=== PATIENT | female | born 1940 | race Caucasian/White ===

== ENCOUNTER 2020-03-06 09:30 | Outpatient (CLI) | payer MEDICARE, BC, SELFPAY ==
--- NOTE | ~2020-03-06 | US_ITS ---
EXAMINATION: US venous doppler [facility] DATE: 03/06/2020 10:11 INDICATION: Lower limb edema. TECHNIQUE: Grayscale ultrasound images without and with compression and Doppler ultrasound images of the bilateral lower extremity veins were obtained. COMPARISON: None. FINDINGS: The visualized portions of right common femoral vein, profunda (deep) femoral vein, femoral vein, pop liteal vein, peroneal veins, posterior tibial veins, and greater saphenous vein outflow are patent. The visualized portions of left common femoral vein, profunda femoral vein, femoral vein, popliteal v ein, peroneal veins, posterior tibial veins, and greater saphenous vein outflow are patent. IMPRESSION: 1. No deep venous thrombosis. Reviewed, dictated and finalized at location A.
[2020-03-06 09:52] LABS: Basophils Absolute Auto 0.05 K/mm3 (0.00-0.10); Basophils Percent Auto 0.9 % (0.0-1.0); Eosinophils Absolute Auto 0.11 K/mm3 (0.02-0.50); Eosinophils Percent Auto 2.1 % (1.0-6.0); Hematocrit 41.8 % (35.0-42.0); Immature Granulocyte Absolute 0.02 K/mm3 (0.00-0.00); Immature Granulocyte Percent A 0.4 % (0.0-0.0); Lymphocytes Absolute Auto 1.23 K/mm3 (1.10-4.50); Lymphocytes Percent Auto 23.3 % (18.0-42.0); Mean Corpuscular HGB Conc 33.5 g/dL (32.0-36.0); Mean Corpuscular Hemoglobin 31.7 pg (27.0-31.0); Mean Corpuscular Volume 94.8 fL (78.0-102.0); Mean Platelet Volume 9.9 fl (9.2-11.8); Monocytes Absolute Auto 0.47 K/mm3 (0.10-0.90); Monocytes Percent Auto 8.9 % (2.0-11.0); Neutrophils Absolute Auto 3.4 K/mm3 (1.7-7.2); Neutrophils Percent Auto 64.4 % (50.0-70.0); Platelet Count Result 179 K/mm3 (150-420); Red Blood Count 4.41 M/mm3 (4.20-5.40); Red Cell Distribution Width 12.3 % (11.6-14.4); White Blood Count 5.3 K/mm3 (4.8-10.8)
[2020-03-06 09:57] LABS: Add Urine Microscopic? YES; Appearance Urine Clear (Clear); Bilirubin Urine Negative (Negative); Blood Urine Negative (Negative); Color Urine Yellow (Yellow); Glucose Urine UA Negative (Negative); Ketones Urine Negative (Negative); Leukocyte Esterase Ur Trace (Negative); Nitrate Urine Negative (Negative); Protein Urine Negative (Negative); Specific Grav Ur >= 1.030 (1.010-1.020); pH Urine 5.5 (5.0-8.0)
[2020-03-06 10:07] LABS: RBC Urine 0-2 /hpf (0-2)
[2020-03-06 10:08] LABS: Bacteria Urine 1+ /hpf; Squamous Epithelial Cell Urine Moderate /hpf (Few)
[2020-03-06 10:14] LABS: BNP 68.3 pg/mL (0-100)
[2020-03-06 10:48] LABS: Alanine Aminotransferase 19 U/L (14-59); Albumin Level 3.5 g/dL (3.4-5.0); Alkaline Phosphatase 69 U/L (46-116); Anion Gap 12.3 mmol/L (7-16); Aspartate Amino Transferase 18 U/L (15-37); Bilirubin,Total 0.5 mg/dL (0.00-1.00); Blood Urea Nitrogen 15 mg/dL (7-18); Carbon Dioxide 29 mmol/L (21-32); Chloride 107 mmol/L (98-108); Estimated Glomerular Filt Rate 48; Glucose 100 mg/dL (70-99); Osmolality Calculated 298 mOsm/kg (285-295); Potassium 4.3 mmol/L (3.5-5.1); Sodium 144 mmol/L (136-145); Thyroid Stimulating Hormone 3.19 uIU/mL (0.36-3.74); Total Protein 6.6 g/dL (6.4-8.2)
== END 2020-03-06 09:31 | disposition home or self-care (01) ==
LOC: CHSLAB 09:37
PROVIDERS: PCP Internal Medicine; Visit Provider Internal Medicine
DX: R60.9 Edema, unspecified (principal); I10 Essential (primary) hypertension; I50.9 Heart failure, unspecified
CPT/HCPCS: 36415; 80053; 81001; 83880; 84443; 85025; 93970

== ENCOUNTER 2020-03-28 09:59 | Outpatient (CLI) | payer MEDICARE, BC, SELFPAY ==
--- NOTE | ~2020-03-28 | MM_ITS ---
EXAMINATION: MM screening kimi BI w juju HISTORY: Screening mammogram TECHNIQUE: Craniocaudal and mediolateral oblique 3-D tomosynthesis images were obtained and synthetic 2-D images were generated. CAD analysis was submitted and interpreted. COMPARISON: No prior mammogram is available for comparison at this institution. BREAST PARENCHYMAL COMPOSITION: The breasts are heterogeneously dense, which may obscure small masses . FINDINGS: Occasional benign calcifications. There is no evidence of suspicious mass, calcification, or architectural distortion to suggest malignancy in either breast. There has been no suspicious int erval change. IMPRESSION: 1. No mammographic evidence of malignancy. 2. Recommend routine screening mammography in one year. BI-RADS Category 2: Benign finding(s). Reviewed, dictated and finalized at location A.
== END 2020-03-28 10:00 | disposition home or self-care (01) ==
PROVIDERS: PCP Internal Medicine; Visit Provider Internal Medicine
DX: Z12.31 Encounter for screening mammogram for malignant neoplasm of breast (principal)
CPT/HCPCS: 77063; 77067

== ENCOUNTER 2020-12-15 08:06 | Emergency (ER) | payer MEDICARE, BC, SELFPAY ==
[2020-12-15 08:15] VITALS: BP 154/76; PULSE 70; RESP 18; TEMP 36.7; O2SAT 95
--- NOTE | 2020-12-15 08:44 | ED.SKABFB ---
HPI - Skin/Abscess/Foreign Bdy General Chief complaint: Skin/Abscess/Foreign Body Stated complaint: back pain Time Seen by Provider: 12/15/20 08:25 Source: patient Mode of arrival: ambulatory Limitations: no limitations History of Present Illness HPI narrative: Patient comes in with back pain at the level of about T5. There is an accompanying rash with this that appears to be shingles. The rash radiates in a dermatomal fashion around the right side of her back and onto her chest. Some of these lesions appear to be vesicles The patient states this is the worst pain she has had in her life. she states that the rash and the pain has been developing over the last few days. Nothing has decreased this pain at home. She has used nonsteroidal anti-inflammatory drugs and Tylenol without much improvement. She states she has never gotten a shingles vaccine. complaint: rash Location: chest and back (about level of T5 in dermatomal fashion) Severity: severe Quality: burning Pain Consistency: constant Relieving factors: none Exacerbating factors: none Related Data Home Medications Medication Instructions Recorded Confirmed atorvastatin 10 mg PO DAILY 12/15/20 12/15/20 omeprazole 40 mg PO DAILY 12/15/20 12/15/20 spironolactone 25 mg PO DAILY 12/15/20 12/15/20 Allergies Allergy/AdvReac Type Severity Reaction Status Date / Time No Known Allergies Allergy Verified 12/15/20 09:04 Review of Systems Constitutional: Constitutional: Reports no additional constitutional complaints Eyes: Eyes: Reports no additional eye complaints ENT: Reports system reviewed and no additional complaints, except as documented Cardiovascular: Cardiovascular: Reports no additional cardiovascular complaints Respiratory: Respiratory: Reports no additional respiratory complaints Gastrointestinal: Gastrointestinal: Reports no additional gastrointestinal complaints Genitourinary: Genitourinary: Reports no additional female genitourinary complaints Musculoskeletal: Musculoskeletal: Reports no additional musculoskeletal complaints Integumentary/Breasts: Skin/Breast: Reports system reviewed and no additional complaints, except as docu Neurologic: Reports system reviewed and no additional complaints, except as documented Psychiatric: Psychiatric: Reports no additional psychiatric complaints Endocrine: Endocrine: Reports no additional endocrine complaints Hematologic/Lymphatic: Hematologic/Lymphatic: Reports no additional hematologic/lymphatic complaints Allergic/Immunologic: Allergic/Immunologic: Reports no additional allergic/immunologic complaints PMFSH Past Medical History Medical History Breast cancer GERD (gastroesophageal reflux disease) Hyperlipidemia Surgical History Surgical History H/O lumpectomy History of hysterectomy Family History Family History Mother Cerebrovascular accident Father CAD (coronary artery disease) Myocardial infarct Social History Social History (Updated 12/16/20 @ 00:57 by Andrade Vazquez MD) Smoking status: Former smoker Tobacco type: cigarettes Alcohol intake: current Alcohol use details: rare very minimal use Substance use: never Occupation/Education: retired Sexual Orientation (if Verbalized by the Patient): Straight or Heterosexual Exam Const: General: no acute distress Orientation/consciousness: patient oriented x3 HENMT: Head: normal to inspection Ears: external ears normal and TM's normal bilaterally General nose exam: Normal external nose present Mouth: Yes Normal oral and palatal mucosa present Throat: posterior oropharynx normal Eyes: Conjunctivae: conjunctivae normal Neck: Neck: normal visual inspection Chest: Other: herpes zoster in dermatoma distribution about level of T5 on the right side of the chest.
[2020-12-15 08:56] VITALS: RESP 19
== END 2020-12-15 08:57 | disposition home or self-care (01) ==
PROVIDERS: Emergency Provider Emergency Medicine; PCP Internal Medicine
DX: B02.9 Zoster without complications (principal)
CPT/HCPCS: 99283

== ENCOUNTER 2021-03-21 13:54 | Emergency (ER) | payer MEDICARE, BC, SELFPAY ==
--- NOTE | ~2021-03-21 | CT_ITS ---
EXAMINATION: CT brain wo con EXAM DATE: 03/21/2021 17:03 INDICATION: Dizziness and weakness since this morning. TECHNIQUE: Spiral CT of the head was performed without contrast. Axial, coronal and sagittal images were reviewed. The dose-length product (DLP) for this examination was 605.33 mGy-cm. The exposure w as tailored according to patient size, and iterative reconstruction (ASIR) was used as additional dos e reduction technique. Comparison is made to prior examination from 01/09/2019. FINDINGS: There is no acute intraparenchymal hemorrhage. No evidence of intraparenchymal brain mass lesion. No evidence of acute infarction. Please note that initial head CT has limited sensitivity f or small or acute infarctions. There is mild periventricular and subcortical hypodensity, nonspecific but probably related to small vessel ischemic disease. There is moderate prominence of the sulci a nd ventricles related to cerebral atrophy. There is intracranial carotid arteriosclerosis. There a re no extra-axial collections. There is no mass effect or midline shift. The orbits are unremarkabl e. Soft tissue is unremarkable. The visualized sinuses and mastoid air cells are well aerated. IMPRESSION: 1. No acute intracranial findings. 2. Chronic age related findings. Reviewed, dictated and finalized at location A.
--- NOTE | ~2021-03-21 | XR_ITS ---
EXAMINATION: XR chest 1V portable EXAM DATE: 03/21/2021 17:04 INDICATION: Dizziness, shortness of breath today. TECHNIQUE: Portable AP frontal chest x-ray was obtained. Comparison is made to prior examination from 01/09/2019. FINDINGS: There is large gastroesophageal hiatal hernia. Heart size within normal limits accounting f or AP technique. No confluent consolidation, pneumothorax or pleural effusion suspected. Mild hyperi nflation. There are bony degenerative changes. IMPRESSION: Large gastroesophageal hiatal hernia. Reviewed, dictated and finalized at location A.
[2021-03-21 15:28] VITALS: BP 133/88; PULSE 54; RESP 20; TEMP 36.2; O2SAT 96
--- NOTE | 2021-03-21 15:53 | ECG_ITS ---
Measurements Intervals [place] Rate: 47 P: 31 [place]: 211 QRS: 34 QRSD: 99 T: 30 QT: 430 QTc: 383 Interpretive Statements SINUS BRADYCARDIA WITH FIRST DEGREE AV BLOCK INCOMPLETE RIGHT BUNDLE BRANCH BLOCK DELAYED PRECORDIAL R/S TRANSITION BASELINE ARTIFACT- II, AVL, AVF ABNORMAL ECG Electronically Signed On 03-21-2021 16:09:42 CDT by Jared Romero D.O.
[2021-03-21 16:00] VITALS: BP 130/74; BP 132/76; PULSE 51; PULSE 52; RESP 20; O2SAT 94; O2SAT 97
[2021-03-21 16:17] LABS: Basophils Absolute Auto 0.05 K/mm3 (0.00-0.10); Basophils Percent Auto 0.9 % (0.0-1.0); Eosinophils Absolute Auto 0.04 K/mm3 (0.02-0.50); Eosinophils Percent Auto 0.7 % (1.0-6.0); Hematocrit 41.8 % (35.0-42.0); Hemoglobin 13.8 g/dL (11.7-13.8); Immature Granulocyte Absolute 0.01 K/mm3 (0.00-0.00); Immature Granulocyte Percent A 0.2 % (0.0-0.0); Lymphocytes Percent Auto 27.1 % (18.0-42.0); Mean Platelet Volume 10.5 fl (9.2-11.8); Monocytes Absolute Auto 0.38 K/mm3 (0.10-0.90); Monocytes Percent Auto 6.9 % (2.0-11.0); Neutrophils Absolute Auto 3.6 K/mm3 (1.7-7.2); Neutrophils Percent Auto 64.2 % (50.0-70.0); Platelet Count Result 172 K/mm3 (150-420); Red Blood Count 4.31 M/mm3 (4.20-5.40); Red Cell Distribution Width 11.9 % (11.6-14.4); White Blood Count 5.5 K/mm3 (4.8-10.8)
[2021-03-21] MEDS: SODIUM CHLORIDE 0.9% IV 500 ML 999 ML IV CONT (16:20)
[2021-03-21 16:33] LABS: Alanine Aminotransferase 14 U/L (14-59); Albumin Level 3.6 g/dL (3.4-5.0); Alkaline Phosphatase 68 U/L (46-116); Anion Gap 12 mmol/L (8-16); Aspartate Amino Transferase 15 U/L (15-37); Bilirubin,Total 0.7 mg/dL (0.00-1.00); Blood Urea Nitrogen 14 mg/dL (7-18); Calcium 9.4 mg/dL (8.5-10.1); Carbon Dioxide 25 mmol/L (21-32); Chloride 106 mmol/L (98-108); Estimated CRCL calculation 38 ml/min; Estimated Glomerular Filt Rate 51; Glucose 110 mg/dL (70-99); Osmolality Calculated 297 mOsm/kg (285-295); Potassium 4.2 mmol/L (3.5-5.1); Sodium 143 mmol/L (136-145)
[2021-03-21 17:00] VITALS: BP 141/73; PULSE 49; RESP 20; O2SAT 94
[2021-03-21 18:00] VITALS: BP 132/66; PULSE 51; RESP 20; O2SAT 98
[2021-03-21 18:01] LABS: Add Urine Microscopic? NO; Appearance Urine Clear (Clear); Bilirubin Urine Negative (Negative); Blood Urine Negative (Negative); Color Urine Light Yellow (Yellow); Glucose Urine UA Negative (Negative); Ketones Urine Negative (Negative); Leukocyte Esterase Ur Negative (Negative); Nitrate Urine Negative (Negative); Protein Urine Negative (Negative); Urobilinogen Urine 0.2 mg/dL (0.2-1.0); pH Urine 7.5 (5.0-8.0)
--- NOTE | 2021-03-21 18:08 | ED.DIZZY ---
HPI - Dizziness General Chief Complaint: Dizziness Stated Complaint: feeling Dizzy/nausea Source: patient, family and RN notes reviewed Limitations: no limitations History of Present Illness MD elicited complaint: dizziness and lightheadedness Onset (ago): day(s) (1) Severity: mild Description: room spinning and lightheadedness History of similar symptoms: Yes Exacerbating factors: movement/ambulation Relieving factors: remaining still Associated symptoms: nausea Stroke scale total: 0 Related Data Home Medications Medication Instructions Recorded Confirmed atorvastatin 10 mg PO DAILY 12/15/20 03/21/21 omeprazole 40 mg PO DAILY 12/15/20 03/21/21 spironolactone 25 mg PO DAILY 12/15/20 03/21/21 Allergies Allergy/AdvReac Type Severity Reaction Status Date / Time No Known Allergies Allergy Verified 03/21/21 15:36 Review of Systems Review of Systems: All systems reviewed & are unremarkable except as noted in HPI and below Constitutional: Constitutional: Reports as per HPI and Reports no additional constitutional complaints Eyes: Eyes: Reports as per HPI and Reports no additional eye complaints ENT: Reports system reviewed and no additional complaints, except as documented and Reports as per HPI Cardiovascular: Cardiovascular: Reports as per HPI and Reports no additional cardiovascular complaints Respiratory: Respiratory: Reports as per HPI and Reports no additional respiratory complaints Gastrointestinal: Gastrointestinal: Reports as per HPI and Reports no additional gastrointestinal complaints Genitourinary: Genitourinary: Reports no additional female genitourinary complaints and Reports as per HPI Musculoskeletal: Musculoskeletal: Reports no additional musculoskeletal complaints and Reports as per HPI Integumentary/Breasts: Skin/Breast: Reports system reviewed and no additional complaints, except as docu and Reports as per HPI Neurologic: Reports system reviewed and no additional complaints, except as documented and Reports as per HPI Psychiatric: Psychiatric: Reports no additional psychiatric complaints and Reports as per HPI Endocrine: Endocrine: Reports no additional endocrine complaints and Reports as per HPI Hematologic/Lymphatic: Hematologic/Lymphatic: Reports no additional hematologic/lymphatic complaints and Reports as per HPI Allergic/Immunologic: Allergic/Immunologic: Reports no additional allergic/immunologic complaints and Reports as per HPI PMFSH Past Medical History Medical History Breast cancer GERD (gastroesophageal reflux disease) Hyperlipidemia Surgical History Surgical History H/O lumpectomy History of hysterectomy Family History Family History Mother Cerebrovascular accident Father CAD (coronary artery disease) Myocardial infarct Social History Social History Smoking status: Former smoker Tobacco type: cigarettes Alcohol intake: current Alcohol use details: rare very minimal use Substance use: never Gender identity (if verbalized by the patient): Female Exam Const: General: no acute distress and alert Nutritional Appearance: well nourished Orientation/consciousness: patient oriented x3 HENMT: Ears: TM's normal bilaterally and external ear abnormal General nose exam: Normal external nose present and Normal nares present Face and sinus: normal facial exam Mouth: Yes moist mucous membranes Throat: posterior oropharynx normal Eyes: Conjunctivae: conjunctivae normal Pupils: Equal, round and reactive pupils present EOM: EOMs intact bilaterally Neck: Neck: normal visual inspection and no lymphadenopathy Chest: Chest palpation & inspection: normal inspection of the chest Resp: Effort & Inspection: normal respiratory effort Aus
--- NOTE | 2021-03-21 18:13 | ECG_ITS ---
Measurements Intervals [place] Rate: 46 P: 45 [place]: 226 QRS: 40 QRSD: 101 T: 31 QT: 442 QTc: 390 Interpretive Statements SINUS BRADYCARDIA WITH FIRST DEGREE AV BLOCK INCOMPLETE RIGHT BUNDLE BRANCH BLOCK ABNORMAL ECG Electronically Signed On 03-21-2021 21:08:39 CDT by Jared Romero D.O.
[2021-03-21] MEDS: MECLIZINE HCL 25 MG TABLET PO (18:36)
[2021-03-21 18:45] VITALS: BP 131/67; PULSE 52; RESP 20; O2SAT 95
[2021-03-21 19:15] VITALS: BP 129/69; PULSE 60; RESP 20; O2SAT 96
== END 2021-03-21 19:18 | disposition home or self-care (01) ==
PROVIDERS: Emergency Provider Emergency Medicine; PCP Internal Medicine
DX: R42 Dizziness and giddiness (principal); K21.9 Gastro-esophageal reflux disease without esophagitis; E78.5 Hyperlipidemia, unspecified; Z85.3 Personal history of malignant neoplasm of breast; Z87.891 Personal history of nicotine dependence
CPT/HCPCS: 36415; 70450; 71045; 80053; 81003; 84484; 85025; 93005; 96360; 99283; 99284; A9270; J7040

== ENCOUNTER 2021-10-04 16:03 | Outpatient (CLI) | payer MEDICARE, BC, SELFPAY ==
--- NOTE | ~2021-10-04 | XR_ITS ---
XR chest 2V DATE: 10/04/2021 16:20 INDICATION: Cough, congestion, dyspnea for months TECHNIQUE: PA and lateral views COMPARISON: 03/21/2021 AP chest FINDINGS: Heart size appears normal. Is aortic arch calcification mild aortic unfolding. There is a l arge hiatal hernia. No hilar or mediastinal enlargement. No pulmonary infiltrate or consolidation, pleural effusion or pulmonary vascular congestion or pneumo thorax is detected. Line is prominent diffuse osteopenia. There is prominent thoracolumbar scoliosis, particularly severe at the lumbar spine. IMPRESSION: No active cardiac pulmonary disease Large hiatal hernia Aortic atherosclerosis Prominent thoracolumbar scoliosis Diffuse osteopenia Reviewed, dictated and finalized at location B. L BLOCKER
--- NOTE | ~2021-10-04 | CT_ITS ---
EXAMINATION: CTA chest PE protocol EXAM DATE: 10/04/2021 18:01 INDICATION: Elevated d dimer w/ congestion cough and SOB. TECHNIQUE: Spiral CTA of the chest (pulmonary arteries) was performed with 100 cc Omnipaque 350 intr avenous contrast injection. Images were acquired during the pulmonary arterial phase. Coronal maxi mum intensity projection 3D-reconstructions were created by the technologist on dedicated workstation . Axial, coronal and sagittal reformatted images were reviewed. The dose-length product (DLP) for t his examination was 488.93 mGy-cm. The exposure was tailored according to patient size (auto mA exp osure control), and iterative reconstruction (ASIR) was used as additional dose reduction technique. There is no prior study for comparison. FINDINGS: Pulmonary arteries are well opacified and without intraluminal filling defects. No thora cic aortic dissection. The lungs are clear. Mild emphysema. There are no pleural or pericardial effu sions. Tracheobronchial tree is patent. There is no mediastinal, hilar or axillary lymphadenopath y. There is no pneumothorax. Heart normal in size. There is mild coronary arterial calcificatio n, arterial sclerosis. Intrathoracic stomach, large hiatal hernia. 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 Moderate thoracolumbar scoliosis. IMPRESSION: 1. Intrathoracic stomach. 2. Mild emphysema. 3. No acute cardiopulmonary findings. Reviewed, dictated and finalized at location G. PRESSER
[2021-10-04 16:32] LABS: Basophils Absolute Auto 0.05 K/mm3 (0.00-0.10); Basophils Percent Auto 1.2 % (0.0-1.0); Eosinophils Absolute Auto 0.15 K/mm3 (0.02-0.50); Eosinophils Percent Auto 3.6 % (1.0-6.0); Hematocrit 42.8 % (35.0-42.0); Hemoglobin 14.1 g/dL (11.7-13.8); Immature Granulocyte Absolute 0.01 K/mm3 (0.00-0.00); Immature Granulocyte Percent A 0.2 % (0.0-0.0); Lymphocytes Absolute Auto 1.09 K/mm3 (1.10-4.50); Lymphocytes Percent Auto 25.8 % (18.0-42.0); Mean Corpuscular HGB Conc 32.9 g/dL (32.0-36.0); Mean Corpuscular Hemoglobin 31.6 pg (27.0-31.0); Mean Platelet Volume 10.4 fl (9.2-11.8); Monocytes Absolute Auto 0.47 K/mm3 (0.10-0.90); Monocytes Percent Auto 11.1 % (2.0-11.0); Neutrophils Absolute Auto 2.5 K/mm3 (1.7-7.2); Neutrophils Percent Auto 58.1 % (50.0-70.0); Platelet Count Result 181 K/mm3 (150-420); Red Blood Count 4.46 M/mm3 (4.20-5.40); Red Cell Distribution Width 12.6 % (11.6-14.4); White Blood Count 4.2 K/mm3 (4.8-10.8)
[2021-10-04 16:56] LABS: D Dimer 1.43 mg/L (0.19-0.50)
[2021-10-04 16:58] LABS: Alanine Aminotransferase 19 U/L (14-59); Albumin Level 3.6 g/dL (3.4-5.0); Alkaline Phosphatase 83 U/L (46-116); Anion Gap 10 mmol/L (8-16); Bilirubin,Total 0.5 mg/dL (0.00-1.00); Blood Urea Nitrogen 16 mg/dL (7-18); Calcium 8.9 mg/dL (8.5-10.1); Carbon Dioxide 28 mmol/L (21-32); Chloride 102 mmol/L (98-108); Estimated Glomerular Filt Rate 50; Glucose 95 mg/dL (70-99); NT Pro B Type Natriuretic Pept 126 pg/mL (0-450); Osmolality Calculated 291 mOsm/kg (285-295); Potassium 3.9 mmol/L (3.5-5.1); Sodium 140 mmol/L (136-145); Total Protein 7.5 g/dL (6.4-8.2)
[2021-10-04 17:10] LABS: SARS-CoV-2 RNA PCR Negative (Negative)
[2021-10-04 17:18] LABS: Aspartate Amino Transferase 19 U/L (15-37)
== END 2021-10-04 16:04 | disposition home or self-care (01) ==
PROVIDERS: PCP Internal Medicine; Visit Provider Internal Medicine
DX: R79.1 Abnormal coagulation profile (principal); R06.00 Dyspnea, unspecified; R05.9 Cough, unspecified; Z20.822 Contact with and (suspected) exposure to COVID-19
CPT/HCPCS: 36415; 71046; 71275; 80053; 83880; 85025; 85380; C9803; Q9967; U0003; U0005

== ENCOUNTER 2021-12-06 07:50 | Outpatient (CLI) | payer MEDICARE, BC, SELFPAY ==
--- NOTE | ~2021-12-06 | XR_ITS ---
EXAMINATION: XR UGIAC w barium swallow EXAM DATE: 12/06/2021 09:02 INDICATION: K44.9 - Diaphragmatic hernia without obstruction or gangrene. TECHNIQUE: Limited single and double contrast barium esophagram and upper GI examination was performe d by radiologist Deshawn Turk M.D. according to patient abilities. Pulsed dose reduction fluoroscopy w as used with fluoroscopic time of 0.3 minutes. The DAP for this procedure was 16 Gycm2. A total of 58 images obtained for the exam. Correlation is made to pulmonary CT 10/04/2021. FINDINGS: The pharynx is symmetric and without evidence of mass lesion or mucosal irregularity. Ther e is no esophageal stricture, diverticulum or mass identified. Stomach is intrathoracic in position, large gastroesophageal hiatal hernia. The stomach has a normal appearance without evidence of mass lesion, ulceration or filling defect. T here is normal rugal fold pattern. The duodenum and duodenal sweep are normal in appearance. IMPRESSION: Intrathoracic stomach. Reviewed, dictated and finalized at location A. IMPRESSION: Intrathoracic stomach.
== END 2021-12-06 07:51 | disposition home or self-care (01) ==
PROVIDERS: PCP Internal Medicine; Visit Provider Internal Medicine Gastroenterology
DX: K44.9 Diaphragmatic hernia without obstruction or gangrene (principal)
CPT/HCPCS: 74246

== ENCOUNTER 2022-03-15 09:07 | Outpatient (CLI) | payer MEDICARE, BC, SELFPAY ==
[2022-03-15 09:48] LABS: Hematocrit 41.2 % (37.0-47.0); Hemoglobin 13.5 g/dL (12.0-15.0)
[2022-03-15 10:00] LABS: Anion Gap 6 mmol/L (8-16); Blood Urea Nitrogen 14 mg/dL (7-17); Calcium 9.1 mg/dL (8.4-10.2); Carbon Dioxide 25 mmol/L (22-30); Chloride 107 mmol/L (98-107); Estimated Glomerular Filt Rate 53; Glucose 94 mg/dL (65-110); Potassium 4.6 mmol/L (3.4-5.0); Sodium 138 mmol/L (137-145)
== END 2022-03-15 09:08 | disposition home or self-care (01) ==
LOC: ANHLAB 09:09
PROVIDERS: PCP Internal Medicine; Referring Provider Anesthesiology; Visit Provider Surgery
DX: Z01.818 Encounter for other preprocedural examination (principal); I10 Essential (primary) hypertension; K44.9 Diaphragmatic hernia without obstruction or gangrene
CPT/HCPCS: 36415; 80048; 85014; 85018; 86850; 86900; 86901

== ENCOUNTER 2022-03-20 16:33 | Inpatient (IN) | payer MEDICARE, BC, SELFPAY ==
--- NOTE | 2022-03-14 08:38 | PC.NURSE ---
Report to the Outpatient Waiting Room, entrance under the green pavilion located off [facility], at time _0630 on date __03/19/22 . OR Time: . - You and your visitor will be asked a series of questions to screen for COVID 19 for your protection. - Only one visitor is allowed at this time. - The patient visitor is requested to leave or wait in car when not with patient. - A mask is required within the hospital. Patients may have clear liquids (water, carbonated beverages, clear teas, apple juice) until 3 hours prior to surgery with a maximum of 20 ounces. - No food from midnight until time of surgery - Infants may have breast milk until 4 hours before surgery, infant formula 6 hours prior to surgery. - Children will be allowed to drink immediately following surgery. If applicable, please bring a bottle or sippy cup to assist with drinking. Juice, water, soda, and popsicles are readily available. For infants on formula, please bring formula the day of surgery. Pacifiers are allowed. Take the following medications with a SIP of water the morning of surgery: __NONE Medications to discontinue per physician NONE Date to take last dose Please no make-up, nail puerto rican, hairspray, perfume, deodorant, or body powder the day of surgery. No jewelry (including any body piercings) or valuables the day of surgery, leave them at home. Please take a shower or bath the night before, or the morning of, surgery with an antibacterial soap. Wear comfortable, loose fitting clothing. Children are encouraged to wear pajamas. - Jewelry must be removed prior to entering the operating room. Rings and piercings that are not removed may be cut off. - The hospital will not accept responsibility for valuables. - Please leave all valuables, including medications, at home the day of surgery.HIBICLENS MORNING OF SURGERY If you are going home after surgery, a licensed driver wheelchair must drive you home. - NO public transportation without another adult. - We recommend that an adult stay with you for 24 hours following discharge. - We also recommend that you do not drive, make important decision, drink alcoholic beverages, or take any drugs that were not prescribed by your health care provider for at least 24 hours after your discharge time. For Pediatric surgeries, we recommend two adults accompany the child home (only one inside the building at this time). Follow any additional instructions given to you from your surgeon. If you or anyone in your household have experienced Covid symptoms in the past week, please notify your surgeon or the nurse liaison at the phone number below for possible testing. Telephone instructions given to __PATIENT and asked if any additional questions and then verbalized understanding. Patient advised to call surgeon office or pre surgery nurse liaison [phone] if any additional questions.
[2022-03-14 09:06] VITALS: BMI 27.8
--- NOTE | 2022-03-18 09:39 | PM.IMHP ---
H&P: HPI History of Present Illness Date/Time: 03/18/22 09:39 Chief Complaint: Epigastric pain, vomiting Narrative: the patient is an 81-year-old woman who has known she has had a hiatal hernia for at least 3 years. She has had problems with shortness of breath and last October went to the emergency room for evaluation of this. She has also had some syncopal episodes. CTA in the emergency room showed an intrathoracic stomach. Patient has had extensive cardiac workup as a cause of her shortness of breath and her syncope. She has had a recent normal stress test. She had outpatient Holter monitoring. She does take digoxin but has normal LV function and nearly no evidence of a cardiac source for her dyspnea or syncope. She initially was referred to Dr. Kwong for her intrathoracic stomach. He saw her in November. An upper GI was done which confirmed a large hiatal hernia with intrathoracic stomach. The patient has had dyspnea particularly on exertion. She used to walk about 4 miles a day but gets short of breath and cannot walk nearly this far in the last year. She also gets epigastric pain after eating. She asked to eat small amounts or she will vomit. Sometimes she gets dry heaves. Her recent cardiac evaluation was completed February 21, 2022. In that evaluation she had 30 day a remote telemetry monitoring, nuclear medicine cardiac stress testing, and echocardiography. No cardiac etiology could be found as a source of her complaints. I initially saw her in December. Although she does not have heartburn symptoms as she takes omeprazole, she does have shortness of breath and obstructive symptoms as mentioned above. We discussed laparoscopic repair of her large hiatal hernia with Halley fundoplication. She took a month to consider it. I saw her again on February 03 and she would like to proceed. She is taken to surgery now for laparoscopic repair of paraesophageal hiatal hernia with Halley fundoplication. Review of Systems Review of Systems: All systems reviewed & are unremarkable except as noted in HPI and below Constitutional: Constitutional: Denies anorexia, Denies chills, Denies fever(s) and Reports poor appetite Cardiovascular: Cardiovascular: Reports as per HPI, Denies chest pain, Denies diaphoresis, Reports dyspnea on exertion and Denies paroxysmal nocturnal dyspnea Respiratory: Respiratory: Denies chest congestion, Denies cough and Reports dyspnea on exertion Gastrointestinal: Gastrointestinal: Reports as per HPI, Reports abdominal pain ( Epigastric), Reports early satiety, Denies heartburn and Reports vomiting Integumentary/Breasts: Skin/Breast: Denies lesions and Denies rash Neurologic: Reports as per HPI, Reports dizziness and Reports syncope [facility] Past Medical History Medical History Breast cancer GERD (gastroesophageal reflux disease) Hyperlipidemia Surgical History Surgical History H/O lumpectomy History of hysterectomy Family History Family History Mother Cerebrovascular accident Father CAD (coronary artery disease) Myocardial infarct Social History Social History Smoking packs per day: 1 Smoking cigarettes per day: 20.0 Years smoked: 12 Smoking pack-years: 12.00 Smoking status: Former smoker Tobacco type: cigarettes Smoking end date: 08/31/59 Alcohol intake: current Alcohol use details: rare very minimal use Substance use: never Gender identity (if verbalized by the patient): Female Sexual Orientation (if Verbalized by the Patient): Straight or Heterosexual Spiritual care concerns: No Meds Home Medications and Allergies Home Medications Medication Instructions Recorded Confirmed Type atorvastatin 10 mg tablet 10 mg PO DAILY 12/15/20 03/14/22
--- NOTE | 2022-03-18 14:53 | WPDANESEPPF ---
Anes - Initial Pre Proc Eval Procedure: Operation Date: 03/19/22 08:30 Proposed Procedures p Laparoscopic Halley Fundoplication - Sherman Morrison MD Date/Time: 03/18/22 14:53 Surgeon: Sherman Morrison MD Pre Op Diagnosis: Hiatal Hernia, GERD Patient Data Age: 81 Gender: F Height: 1.65 m Weight: 75.75 kg Allergies Allergy/AdvReac Type Severity Reaction Status Date / Time No Known Allergies Allergy Verified 03/19/22 06:30 Home Medications Medication Instructions Recorded Confirmed Type atorvastatin 10 mg tablet 10 mg PO DAILY 12/15/20 03/19/22 History omeprazole 40 mg capsule,delayed 40 mg PO DAILY 12/15/20 03/19/22 History release spironolactone 25 mg tablet 25 mg PO DAILY 12/15/20 03/19/22 History acetaminophen 325 mg tablet 325 mg PO PRN PRN Pain 03/14/22 03/19/22 History (Tylenol) Patient hx anesthesia problems: none Family hx anesthesia problems: none Results Review: All pre-operative results and documents have been reviewed as part of the pre-operative evaluation. [facility] Past Medical History Medical History (Updated 03/18/22 @ 14:52 by Sagar Diaz MD) Atrial fibrillation Breast cancer Essential hypertension GERD (gastroesophageal reflux disease) Hyperlipidemia Surgical History Surgical History H/O lumpectomy History of hysterectomy Family History Family History Mother Cerebrovascular accident Father CAD (coronary artery disease) Myocardial infarct Social History Social History Smoking packs per day: 1 Smoking cigarettes per day: 20.0 Years smoked: 12 Smoking pack-years: 12.00 Smoking status: Former smoker Tobacco type: cigarettes Smoking end date: 08/31/59 Alcohol intake: current Alcohol use details: rare very minimal use Substance use: never Living arrangements: with family Gender identity (if verbalized by the patient): Female Sexual Orientation (if Verbalized by the Patient): Straight or Heterosexual Spiritual care concerns: No Anes - Eval Final PreProcedure Day of Procedure 03/18/22 14:53 Patient weight: normal Heart: regular rate and rhythm Lungs: clear to auscultation Airway: Mallampati scale class II Neurological: alert and oriented Last oral intake: >/= 8 hours ASA classification: III Emergent: no Anesthetic plan: proceed Anesthesia type and monitoring: general ETT and standard monitoring Results Review: All pre-operative results and documents have been reviewed as part of the pre-operative evaluation. Informed Consent: The patient's anesthetic plan and its attendant risks and benefits were discussed with the patient/family/POA. Questions were solicited and answers provided to the satisfaction of the patient/family/POA.
[2022-03-19] VITALS (23 sets, daily range): BP systolic 116–161; BP diastolic 62–85; PULSE 52–81; RESP 12–20; TEMP 36.1–36.6; O2SAT 96–100
--- NOTE | 2022-03-19 07:21 | WPDHPUPDATE1 ---
History and Physical Update Update Date/Time: 03/19/22 07:21 History and Physical has been reviewed, including an updated exam of the patient. There are NO changes in the patient's condition. Risks, benefits, and alternatives have been discussed and questions answered. Patient agrees to proceed with procedure.
[2022-03-19] MEDS: LACTATED RINGERS 1,000 ML 30 ML IV CONT ×3 (07:26→13:12)
[2022-03-19] MEDS: ceFAZolin 2 GM/D5W 50 ML 2 GM/50 ML BAG IVPB (08:31)
[2022-03-19] MEDS: BUPIVACAINE/EPINEPHRINE 0.25% 50 ML VIAL INFILTRATE (08:31)
--- NOTE | 2022-03-19 12:22 | W.PM.PROC2 ---
Procedure Note - Detailed Date of Procedure 03/19/22 Pre-op Diagnosis Paraesophageal hiatal hernia with intrathoracic stomach Post-op Diagnosis Same Procedure Performed Repair paraesophageal hiatal hernia with Halley fundoplication Surgeon Sherman Morrison MD Color Making Supervisor Demetra Degroot [facility] Anesthesia General and Local (0.25% Marcaine with epinephrine) Indications Patient is an 81-year-old woman who has a known large hiatal hernia for at least the last 3 years. She has had obstructive symptoms from the hiatal hernia with some vomiting and trouble eating. She has also had shortness of breath. Her reflux symptoms are actually controlled with omeprazole but the obstructive symptoms and dyspnea have been debilitating for her. She is taken to surgery now for repair of her paraesophageal hiatal hernia with fundoplication. Findings Large hiatal hernia with nearly the entire stomach in the chest and with evidence of paraesophageal hernia and volvulus. Numerous adhesions both to the greater curvature of the stomach as well as the esophagus necessitating extensive mediastinal dissection. The liver was difficult to retract as it was very floppy in the left lateral segment and somewhat enlarged causing it to drape over the upper aspect of the hiatus. There were numerous right-sided abdominal adhesions to the anterior abdominal wall that had to be taken down prior to starting the repair. This adhesiolysis required an extra 5 mm port be placed in the left lower quadrant. Blood loss was about 100 cc which is 3-4 times what it usually is for this surgery. Description of Procedure The patient was taken to surgery and induced into general anesthesia. Robert catheter was placed. The entire abdomen was prepped and draped. The initial trocar was placed in the midline above the umbilicus. Local anesthesia was infiltrated prior to placement of each of the trocars. For this trocar site, we initially used the varies needle and saline drop technique to ensure intra-abdominal placement. We then insufflated CO2 without difficulty. Once the abdomen was distended, a 10 11 applied Medical optical trocar was placed in the abdomen without difficulty. We placed the camera and immediately noticed extensive anterior abdominal wall adhesions on the right side of the abdomen. A 10 11 left subcostal lateral port was placed under direct visualization. We viewed the adhesions through this port as well. There was no good way to take them down without an additional port being placed on the left side of the abdomen. A 5 mm left lower quadrant port was placed under direct visualization. Through this port, these adhesions were taken down with sharp and blunt dissection. Some LigaSure dissection was used as well. We freed adhesions from the falciform ligament. Adhesions over the liver and caudal to the liver were also taken down until we had the normal area of trocar placement and dissection for the hiatal hernia repair. We continued with the 5 mm left lower quadrant trocar for insufflation. I then placed the incision for the Chung self-retaining liver retractor just to the right of the xiphoid process in the upper midline. The Chung was placed in the abdomen. As mentioned above, the lateral segment of the left lobe of the liver was larger than usual and very floppy. It was difficult to retract this anteriorly without the anterior edge of the lateral segment flopping down to obscure our view. Eventually I was able to retract this portion of the liver but some of the posterior portion was overlying the anterior aspect of the esophageal hiatus. We then placed the remaining 10 11 ports in their usual position just to the right and left of the midline in the upper abdomen. Now looking at the hiatal hernia, the distal stomach was more less overlying the right aicha and obscuring the gastrohepatic ligament. Some traction on the stomach was performed and eventually I was able to see some of
[2022-03-19] MEDS: PROPOFOL IV EMULSION 100 ML 21.18 MG IV CONT (12:32)
[2022-03-19] MEDS: fentaNYL CITRATE INJ (*CRX) 100 MCG/2 ML VIAL 25 MCG IV PUSH ×8 (13:04→14:54)
--- NOTE | 2022-03-19 13:05 | SUR.PHASEI ---
1250 - dr. ellsworth at bedside. extubated pt. pt arouses to verbal stimuli. resp easy and regular
[2022-03-19] MEDS: LACTATED RINGERS 1,000 ML 80 ML IV CONT (17:17)
[2022-03-19] MEDS: IBUPROFEN IV 800 MG/200 ML 800 MG/200 ML BAG 400 MG IVPB (17:17)
[2022-03-19] MEDS: ONDANSETRON INJ 4 MG/2 ML VIAL IV PUSH (17:18)
--- NOTE | 2022-03-19 18:39 | ADMGEN ---
This patient, Misti Garcia, was admitted to Medical Room 247-. Patient/family oriented to hospital policies and general routines including ID bracelet, bed and alarms, visiting hours, pain management, procedures, bathroom and other care routines, personal items, smoking policy, room service/diet, and visiting hours. Information on how to activate the Rapid Response Team has been discussed. Patient/Family are encouraged to report perceived risks to care and to ask questions if they do not understand what they are told or what they should do.
[2022-03-19] MEDS: HYDROcodone/acetaminophen (*CRX) 5-325 MG TABLET 1 TAB PO (20:21)
[2022-03-19] MEDS: HYDROcodone/acetaminophen (*CRX) 7.5-325 MG TABLET 1 TAB PO (22:26)
--- NOTE | ~2022-03-20 | XR_ITS ---
EXAMINATION: XR esophogram water soluble DATE: 03/23/2022 12:24 INDICATION: Dysphagia post hiatal hernia repair 4 days prior. TECHNIQUE: The patient drank water subtle contrast. Fluoroscopic spot radiographs of the hypopharynx and esophagus were obtained. Fluoroscopy exposure time was 0.4 minutes. COMPARISON: None. FINDINGS: On the first swallow contrast extending probably to the distal esophagus which measured approximately 3 cm in diameter. Lucent filling defects consistent with previously ingested material are seen in th e distal esophagus. Very small amount of the contrast passed into the stomach with a persistent sever e narrowing measuring approximately 3 cm in length at the gastroesophageal junction which could refle ct changes of prior Halley complication. Correlate with surgical history. The presence of previously ingested debris in the distal esophagus suggests an ongoing stricture as opposed to muscle spasm and no further contrast was administered. IMPRESSION: 1. Severe narrowing of the distal esophagus at the gastroesophageal junction with nearly indiscernibl e threadlike lumen at this location which may be due to a prior Halley fundoplication in the provided history of hiatal hernia repair. The presence of residual previously ingested debris within the dist al esophagus suggests represents an ongoing fixed obstruction. Correlate with details of the prior june rgery. Reviewed, dictated and finalized at location A. IMPRESSION: 1. Severe narrowing of the distal esophagus at the gastroesophageal junction wi th nearly indiscernible threadlike lumen at this location which may be due to a prior Halley fundoplication in the provided history of hiatal hernia repair. T he presence of residual previously ingested debris within the distal esophagus suggests represents an ongoing fixed obstruction. Correlate with details of the prior surgery.
--- NOTE | ~2022-03-20 | XR_ITS ---
EXAMINATION: XR chest 2V DATE: 03/27/2022 13:22 INDICATION: Shortness of breath TECHNIQUE: PA and lateral views of the chest are obtained. COMPARISON: 10/04/2021 FINDINGS: There are small pleural effusions. Minimal airspace opacities are present in the lung bases . The cardiomediastinal silhouette is normal. There is moderate thoracic spondylosis. No pneumothorax is identified. IMPRESSION: 1. Small pleural effusions with minimal bibasilar airspace opacities, atelectasis versus pneumonia. Reviewed, dictated and finalized at location B. IMPRESSION: 1. Small pleural effusions with minimal bibasilar airspace opacities, atelectas is versus pneumonia.
[2022-03-20 05:29] LABS: Hematocrit 35.2 % (37.0-47.0); Hemoglobin 11.2 g/dL (12.0-15.0); Mean Corpuscular HGB Conc 31.8 g/dl (32-36); Mean Corpuscular Hemoglobin 30.8 pg (26-34); Mean Corpuscular Volume 96.7 fl (80-100); Mean Platelet Volume 10.5 fl (7.4-10.4); Platelet Count Result 139 k/mm3 (150-375); Red Blood Count 3.64 M/mm3 (4.2-5.4); Red Cell Distribution Width 12.8 % (11.5-14.5); White Blood Count 7.7 K/mm3 (4.5-10.0)
[2022-03-20 05:40] LABS: Anion Gap 2 mmol/L (8-16); Blood Urea Nitrogen 20 mg/dL (7-17); Calcium 8.8 mg/dL (8.4-10.2); Carbon Dioxide 30 mmol/L (22-30); Chloride 104 mmol/L (98-107); Estimated CRCL calculation 37 ml/min; Estimated Glomerular Filt Rate 60; Glucose 113 mg/dL (65-110); Potassium 4.5 mmol/L (3.4-5.0); Sodium 136 mmol/L (137-145)
[2022-03-20] MEDS: LACTATED RINGERS 1,000 ML 80 ML IV CONT (06:06)
[2022-03-20 06:20] VITALS: BP 118/60; PULSE 52; RESP 16; TEMP 36.6; O2SAT 100
[2022-03-20] MEDS: HYDROcodone/acetaminophen (*CRX) 7.5-325 MG TABLET 1 TAB PO ×2 (08:01→14:33)
[2022-03-20] MEDS: SPIRONOLACTONE 25 MG TABLET PO (08:02)
[2022-03-20] MEDS: ATORVASTATIN 10 MG TABLET PO (08:02)
[2022-03-20] MEDS: PANTOPRAZOLE SODIUM IV 40 MG VIAL IV PUSH (08:02)
[2022-03-20] MEDS: ENOXAPARIN 40 MG/0.4 ML SYRINGE SUB-Q (08:02)
[2022-03-20 08:25] VITALS: O2SAT 99
[2022-03-20 10:06] VITALS: BP 115/57; PULSE 66; RESP 16; TEMP 36.6; O2SAT 94
[2022-03-20 14:00] VITALS: BP 112/56; PULSE 62; RESP 16; TEMP 36.6; O2SAT 94
--- NOTE | 2022-03-20 14:28 | PM.PNGS ---
Progress Note: A&P Assessment and Plan (1) Paraesophageal hiatal hernia: Code(s): K44.9 - Diaphragmatic hernia without obstruction or gangrene Status: Acute Assessment and Plan: POD#1 and doing well. Still a little drowsy but seems to be slowly improving. Tolerate clear liquids. Advance to full liquids and decrease IV fluids. Encouraged to get up in the chair this afternoon. Slowly increase activity as tolerated. Repeat labs tomorrow. (2) Essential hypertension: Code(s): I10 - Essential (primary) hypertension Status: Inactive Assessment and Plan: Spironolactone restarted. BP stable. Continue to monitor. (3) Arrhythmia: Code(s): I49.9 - Cardiac arrhythmia, unspecified Status: Acute Assessment and Plan: Regular rate and rhythm on exam. Plan I have discussed the patient's case and plan of care with Dr. Morrison. Subjective Subjective Date/Time Seen: 03/20/22 14:28 Post Op day: 1 (Laparoscopic Halley fundoplication) Patient reports: tolerating liquids well, voiding w/o difficulty, no flatus, no bowel movement and afebrile Interval history: Patient seen and examined. Reports feeling drowsy today and sleeping through the day, but she is able to stay awake for our entire conversation. She does not have any issues with falling asleep while speaking to her. She reports some pain with swallowing, but no other issues with the clear liquids. No nausea or reflux. Pain well controlled. Review of Systems Review of Systems: All systems reviewed & are unremarkable except as noted in HPI and below Constitutional: Constitutional: Reports no additional constitutional complaints, Denies chills, Denies fever(s) and Denies headache(s) Cardiovascular: Cardiovascular: Reports no additional cardiovascular complaints, Denies chest pain and Denies leg edema Respiratory: Respiratory: Reports no additional respiratory complaints, Denies cough and Denies dyspnea Gastrointestinal: Gastrointestinal: Reports as per HPI and Reports no additional gastrointestinal complaints Exam Const: General: comfortable, no acute distress, alert and awake Orientation/consciousness: patient oriented x3 Resp: Effort & Inspection: normal respiratory effort Auscultation: clear to auscultation bilaterally Cardio: Rate: regular rate Rhythm: regular rhythm GI: Inspection: non-distended and incision (incisions dry and intact, no erythema or drainage) GI Palp: Yes Soft to palpation, Yes Tenderness to palpation present (GI) (incisional), No Guarding due to palpation present (GI) and No Rebound tenderness present Auscultation: Hypoactive bowel sounds present Neuro: General: moves all extremities and no focal motor deficits Extrem: General: normal to inspection and edema Psych: Insight: Good insight present (Psych) Objective Data Vital Signs Vital Signs: Vital Signs - 24 hr 03/19/22 14:30 03/19/22 14:45 03/19/22 15:00 Temperature Pulse Rate 54 L 54 L 54 L Respiratory Rate 12 14 16 Blood Pressure 159/71 H 144/80 H 161/78 H Pulse Oximetry 98 99 100 Oxygen Delivery Nasal Cannula Nasal Cannula Nasal Cannula Oxygen Flow Rate 2 2 2 03/19/22 15:15 03/19/22 15:30 03/19/22 15:45 Temperature Pulse Rate 55 L 53 L 52 L Respiratory Rate 18 14 16 Blood Pressure 152/71 H 150/70 H 156/71 H Pulse Oximetry 100 100 100 Oxygen Delivery Nasal Cannula Nasal Cannula Nasal Cannula Oxygen Flow Rate 2 2 2 03/19/22 16:00 03/19/22 16:23 03/19/22 16:54 Temperature 97 F L 97.2 F L Pulse Rate 54 L 57 L 58 L Respiratory Rate 14 18 18 Blood Pressure 143/74 H 160/74 H 142/75 H Pulse Oximetry 100 99 100 Oxygen Delivery Nasal Cannula Oxygen Flow Rate 2 03/19/22 18:24 03/19/22 17:24 03/19/22 19:42 Temperature 96.9 F L 97 F L 97.6 F Pulse Rate 60 57 L 55 L Respiratory Rate 18 16 16 Blood Pressure 134/68 140/72 131/85 Pulse Oximetry 100 100 99 Oxygen Delivery Oxygen Flow Rate 03/19/22 20:00 0
[2022-03-20] MEDS: ONDANSETRON INJ 4 MG/2 ML VIAL IV PUSH (14:33)
[2022-03-20] MEDS: LACTATED RINGERS 1,000 ML 60 ML IV CONT (18:20)
[2022-03-20 19:38] VITALS: BP 105/55; PULSE 62; RESP 18; TEMP 36.6; O2SAT 96
[2022-03-20] MEDS: HYDROcodone/acetaminophen (*CRX) 5-325 MG TABLET 1 TAB PO (19:54)
[2022-03-20] MEDS: IBUPROFEN IV 800 MG/200 ML 800 MG/200 ML BAG 400 MG IVPB (22:28)
[2022-03-20 23:37] VITALS: BP 110/55; PULSE 80; RESP 17; TEMP 36.9; O2SAT 90
[2022-03-21 03:50] VITALS: BP 109/58; PULSE 56; RESP 17; TEMP 36.4; O2SAT 90
[2022-03-21 05:33] LABS: Hematocrit 33.5 % (37.0-47.0); Hemoglobin 10.8 g/dL (12.0-15.0); Immature Platelet Fraction Pct 5.1 % (0.9-11.2); Mean Corpuscular HGB Conc 32.2 g/dl (32-36); Mean Corpuscular Hemoglobin 31.1 pg (26-34); Mean Corpuscular Volume 96.5 fl (80-100); Platelet Count Result 131 k/mm3 (150-375); Red Blood Count 3.47 M/mm3 (4.2-5.4); Red Cell Distribution Width 13.2 % (11.5-14.5); White Blood Count 5.7 K/mm3 (4.5-10.0)
[2022-03-21 05:48] LABS: Anion Gap 3 mmol/L (8-16); Blood Urea Nitrogen 19 mg/dL (7-17); Calcium 8.3 mg/dL (8.4-10.2); Carbon Dioxide 29 mmol/L (22-30); Chloride 104 mmol/L (98-107); Estimated CRCL calculation 42 ml/min; Estimated Glomerular Filt Rate > 60; Glucose 104 mg/dL (65-110); Potassium 4.2 mmol/L (3.4-5.0); Sodium 136 mmol/L (137-145)
[2022-03-21] MEDS: ENOXAPARIN 40 MG/0.4 ML SYRINGE SUB-Q (09:22)
[2022-03-21] MEDS: SPIRONOLACTONE 25 MG TABLET PO (09:22)
[2022-03-21] MEDS: ATORVASTATIN 10 MG TABLET PO (09:22)
[2022-03-21] MEDS: PANTOPRAZOLE 40 MG TABLET PO (09:22)
[2022-03-21 09:35] VITALS: O2SAT 95
[2022-03-21 10:00] VITALS: O2SAT 92
[2022-03-21] MEDS: LACTATED RINGERS 1,000 ML 60 ML IV CONT (11:42)
[2022-03-21] MEDS: HYDROcodone/acetaminophen (*CRX) 5-325 MG TABLET 1 TAB PO ×2 (11:48→18:01)
[2022-03-21 15:00] VITALS: BP 139/65; PULSE 64; RESP 16; TEMP 36.9; O2SAT 95
--- NOTE | 2022-03-21 16:02 | PM.PNGS ---
Progress Note: A&P Assessment and Plan (1) Paraesophageal hiatal hernia: Code(s): K44.9 - Diaphragmatic hernia without obstruction or gangrene Status: Acute Assessment and Plan: Improving postop day 2. Still pretty unsteady on her feet but tolerating liquids. Will advance to soft diet. Continue ambulation. Possibly home in 1-2 days. Subjective Subjective Date/Time Seen: 03/21/22 16:02 Post Op day: 2 Patient reports: feels better (Not as sleepy today. Still very unsteady on her feet.), pain is less, flatus, no bowel movement and afebrile Interval history: Patient pretty awake this morning. She has been taking Mayetta for pain and taking some clear liquids but not a lot. She is requiring a lot of help to get out of bed and feels unsteady on her feet. No complaints of heartburn or nausea. Exam Const: General: comfortable, no acute distress, alert and awake Nutritional Appearance: average body habitus Orientation/consciousness: No confusion (Not confused but a little forgetful) GI: Inspection: incision (Dry and healing well) GI Palp: Yes Soft to palpation and Yes Tenderness to palpation present (GI) Neuro: General: no focal motor deficits and No confusion Extrem: General: no calf tenderness and no edema Objective Data Vital Signs Vital Signs: Vital Signs - 24 hr 03/20/22 19:38 03/20/22 20:00 03/20/22 23:37 Temperature 36.6 C 36.9 C Pulse Rate 62 80 Respiratory Rate 18 17 Blood Pressure 105/55 L 110/55 L Pulse Oximetry 96 90 Oxygen Delivery Room Air 03/21/22 03:50 03/21/22 09:35 03/21/22 10:00 Temperature 36.4 C L Pulse Rate 56 L Respiratory Rate 17 Blood Pressure 109/58 L Pulse Oximetry 90 95 92 Oxygen Delivery Room Air Room Air Intake/Output Intake/Output: Intake & Output 03/18/22 03/19/22 03/20/22 03/21/22 23:59 23:59 23:59 23:59 Intake Total 350 3910 1830 Output Total 1650 1300 Balance 350 2260 530 Meds/Results Medications: Active Medications Generic Name Dose Route Start Last Admin Trade Name Freq PRN Reason Stop Dose Admin Acetaminophen 500 mg 03/19/22 16:02 Acetaminophen 500 Mg Tablet PO Q6H PRN Mild Pain (1-3) or Fever Hydrocodone Bitart/Acetaminophen 1 tab 03/19/22 16:02 03/21/22 11:48 Hydrocodone/Acetaminophen (*Crx) 5-325 Mg Tablet PO 1 tab Q4H PRN Administration Pain Rated 4-6 Hydrocodone Bitart/Acetaminophen 1 tab 03/19/22 16:02 03/20/22 14:33 Hydrocodone/Acetaminophen (*Crx) 7.5-325 Mg Tablet PO 1 tab Q4H PRN Administration Pain Rated 7-10 Atorvastatin Calcium 10 mg 03/20/22 09:00 03/21/22 09:22 Atorvastatin 10 Mg Tablet PO 10 mg DAILY JAMESON Administration Enoxaparin Sodium 40 mg 03/20/22 09:00 03/21/22 09:22 Enoxaparin 40 Mg/0.4 Ml Syringe SUB-Q 40 mg DAILY JAMESON Administration Lactated Ringer's 1,000 mls @ 60 mls/hr 03/19/22 16:02 03/21/22 11:42 Lr - Lactated Ringers Iv IV CONT 60 mls/hr .[id number] JAMESON Administration Ibuprofen 800 mg in 200 mls @ 400 mls/hr 03/19/22 16:02 03/20/22 22:58 Caldolor 800 Mg/200 Ml IVPB Infused Q6H PRN Infusion Pain Rated 1-3 Morphine Sulfate 1 mg 03/19/22 16:02 Morphine Sulfate (*Crx) 2 Mg/Ml Inj IV PUSH Q2H PRN Pain Rated 4-6 Morphine Sulfate 2 mg 03/19/22 16:02 Morphine Sulfate (*Crx) 4 Mg/Ml Inj IV PUSH Q2H PRN Pain Rated 7-10 Naloxone HCl 0.1 mg 03/19/22 16:02 Naloxone Hcl 0.4 Mg/Ml Vial IV PUSH Q2M PRN Opiate Reversal Ondansetron HCl 4 mg 03/19/22 16:02 03/20/22 14:33 Ondansetron Inj 4 Mg/2 Ml Vial IV PUSH 4 mg Q4H PRN Administration Nausea And Vomiting Pantoprazole Sodium 40 mg 03/21/22 09:00 03/21/22 09:22 Pantoprazole 40 Mg Tablet PO 40 mg QAM JAMESON Administration Spironolactone 25 mg 03/20/22 09:00 03/21/22 09:22 Spironolactone 25 Mg Tablet PO 25 mg DAILY JAMESON Administration Labs Labs: Laboratory Resu
[2022-03-21 20:00] VITALS: O2SAT 95
[2022-03-21 23:00] VITALS: BP 129/66; PULSE 57; RESP 18; TEMP 36.8; O2SAT 96
[2022-03-22] MEDS: HYDROcodone/acetaminophen (*CRX) 5-325 MG TABLET 1 TAB PO ×3 (01:52→23:29)
[2022-03-22] MEDS: LACTATED RINGERS 1,000 ML 60 ML IV CONT ×2 (04:15→18:43)
[2022-03-22 05:30] LABS: Hematocrit 35.5 % (37.0-47.0); Hemoglobin 11.6 g/dL (12.0-15.0); Immature Platelet Fraction Pct 5.8 % (0.9-11.2); Mean Corpuscular HGB Conc 32.7 g/dl (32-36); Mean Corpuscular Hemoglobin 31.5 pg (26-34); Mean Corpuscular Volume 96.5 fl (80-100); Mean Platelet Volume 11.1 fl (7.4-10.4); Platelet Count Result 140 k/mm3 (150-375); Red Blood Count 3.68 M/mm3 (4.2-5.4); Red Cell Distribution Width 13.2 % (11.5-14.5)
[2022-03-22 05:58] VITALS: BP 130/61; PULSE 60; RESP 20; TEMP 36.9; O2SAT 97
[2022-03-22 06:06] LABS: Anion Gap 0 mmol/L (8-16); Blood Urea Nitrogen 12 mg/dL (7-17); Calcium 8.2 mg/dL (8.4-10.2); Carbon Dioxide 30 mmol/L (22-30); Chloride 106 mmol/L (98-107); Estimated CRCL calculation 47 ml/min; Estimated Glomerular Filt Rate > 60; Glucose 114 mg/dL (65-110); Sodium 136 mmol/L (137-145)
[2022-03-22] MEDS: ENOXAPARIN 40 MG/0.4 ML SYRINGE SUB-Q (08:59)
[2022-03-22] MEDS: SPIRONOLACTONE 25 MG TABLET PO (09:00)
[2022-03-22] MEDS: PANTOPRAZOLE 40 MG TABLET PO (09:00)
[2022-03-22] MEDS: ATORVASTATIN 10 MG TABLET PO (09:00)
[2022-03-22 09:04] VITALS: O2SAT 95
--- NOTE | 2022-03-22 11:23 | PM.PNGS ---
Progress Note: A&P Assessment and Plan (1) Paraesophageal hiatal hernia: Code(s): K44.9 - Diaphragmatic hernia without obstruction or gangrene Status: Acute Assessment and Plan: Significant dysphagia and regurgitation today, will back off to clear liquid diet Consider esophagram tomorrow if regurgitation persists Likely related to postoperative edema/inflammation Subjective Subjective Date/Time Seen: 03/22/22 11:23 Interval history: Patient not tolerating solid diet. Regurgitating everything she has tried to eat or drink today. Feels like food/liquid is getting stuck midway down the esophagus. Exam GI: Inspection: incision (Intact with glue) GI Palp: Yes Soft to palpation, No Tenderness to palpation present (GI) and No Guarding due to palpation present (GI) Objective Data Vital Signs Vital Signs: Vital Signs - 24 hr 03/21/22 15:00 03/21/22 20:00 03/21/22 23:00 Temperature 36.9 C 36.8 C Pulse Rate 64 57 L Respiratory Rate 16 18 Blood Pressure 139/65 129/66 Pulse Oximetry 95 95 96 Oxygen Delivery Room Air 03/22/22 05:58 03/22/22 09:04 Temperature 36.9 C Pulse Rate 60 Respiratory Rate 20 Blood Pressure 130/61 Pulse Oximetry 97 95 Oxygen Delivery Room Air Intake/Output Intake/Output: Intake & Output 03/19/22 03/20/22 03/21/22 03/22/22 23:59 23:59 23:59 23:59 Intake Total 350 3910 2961 789 Output Total 1650 1650 220 Balance 350 2260 1311 569 Meds/Results Medications: Active Medications Generic Name Dose Route Start Last Admin Trade Name Freq PRN Reason Stop Dose Admin Acetaminophen 500 mg 03/19/22 16:02 Acetaminophen 500 Mg Tablet PO Q6H PRN Mild Pain (1-3) or Fever Hydrocodone Bitart/Acetaminophen 1 tab 03/19/22 16:02 03/22/22 06:52 Hydrocodone/Acetaminophen (*Crx) 5-325 Mg Tablet PO 1 tab Q4H PRN Administration Pain Rated 4-6 Hydrocodone Bitart/Acetaminophen 1 tab 03/19/22 16:02 03/20/22 14:33 Hydrocodone/Acetaminophen (*Crx) 7.5-325 Mg Tablet PO 1 tab Q4H PRN Administration Pain Rated 7-10 Atorvastatin Calcium 10 mg 03/20/22 09:00 03/22/22 09:00 Atorvastatin 10 Mg Tablet PO 10 mg DAILY JAMESON Administration Enoxaparin Sodium 40 mg 03/20/22 09:00 03/22/22 08:59 Enoxaparin 40 Mg/0.4 Ml Syringe SUB-Q 40 mg DAILY JAMESON Administration Lactated Ringer's 1,000 mls @ 60 mls/hr 03/19/22 16:02 03/22/22 04:15 Lr - Lactated Ringers Iv IV CONT 60 mls/hr .[id number] JAMESON Administration Ibuprofen 800 mg in 200 mls @ 400 mls/hr 03/19/22 16:02 03/20/22 22:58 Caldolor 800 Mg/200 Ml IVPB Infused Q6H PRN Infusion Pain Rated 1-3 Morphine Sulfate 1 mg 03/19/22 16:02 Morphine Sulfate (*Crx) 2 Mg/Ml Inj IV PUSH Q2H PRN Pain Rated 4-6 Morphine Sulfate 2 mg 03/19/22 16:02 Morphine Sulfate (*Crx) 4 Mg/Ml Inj IV PUSH Q2H PRN Pain Rated 7-10 Naloxone HCl 0.1 mg 03/19/22 16:02 Naloxone Hcl 0.4 Mg/Ml Vial IV PUSH Q2M PRN Opiate Reversal Ondansetron HCl 4 mg 03/19/22 16:02 03/20/22 14:33 Ondansetron Inj 4 Mg/2 Ml Vial IV PUSH 4 mg Q4H PRN Administration Nausea And Vomiting Pantoprazole Sodium 40 mg 03/21/22 09:00 03/22/22 09:00 Pantoprazole 40 Mg Tablet PO 40 mg QAM JAMESON Administration Spironolactone 25 mg 03/20/22 09:00 03/22/22 09:00 Spironolactone 25 Mg Tablet PO 25 mg DAILY JAMESON Administration Labs Labs: Laboratory Results - last 24 hr 03/22/22 03/22/22 05:01 05:01 WBC 7.0 RBC 3.68 L Hgb 11.6 L Hct 35.5 L MCV 96.5 MCH 31.5 MCHC 32.7 RDW 13.2 Plt Count 140 L MPV 11.1 H % Immature Plt Fraction 5.8 Sodium 136 L Potassium 4.0 Chloride 106 Carbon Dioxide 30 Anion Gap 0 L BUN 12 D Creatinine 0.70 Estim Creat Clear Calc 47 Estimated GFR > 60 Glucose 114 H Calcium 8.2 L
[2022-03-22 15:00] VITALS: BP 108/59; PULSE 63; RESP 16; TEMP 36.6; O2SAT 94
[2022-03-22 20:13] VITALS: BP 151/67; PULSE 61; RESP 20; TEMP 36.1; O2SAT 96
[2022-03-22] MEDS: ONDANSETRON INJ 4 MG/2 ML VIAL IV PUSH (23:29)
[2022-03-23 03:44] VITALS: BP 124/84; PULSE 94; RESP 17; TEMP 36.1; O2SAT 95
[2022-03-23] MEDS: HYDROcodone/acetaminophen (*CRX) 5-325 MG TABLET 1 TAB PO (04:02)
[2022-03-23 05:13] LABS: Hematocrit 34.3 % (37.0-47.0); Hemoglobin 11.4 g/dL (12.0-15.0); Mean Corpuscular HGB Conc 33.2 g/dl (32-36); Mean Corpuscular Hemoglobin 31.1 pg (26-34); Mean Corpuscular Volume 93.7 fl (80-100); Mean Platelet Volume 11.1 fl (7.4-10.4); Platelet Count Result 163 k/mm3 (150-375); Red Blood Count 3.66 M/mm3 (4.2-5.4); Red Cell Distribution Width 13.1 % (11.5-14.5); White Blood Count 6.1 K/mm3 (4.5-10.0)
[2022-03-23 05:21] LABS: Anion Gap 6 mmol/L (8-16); Blood Urea Nitrogen 10 mg/dL (7-17); Calcium 8.3 mg/dL (8.4-10.2); Carbon Dioxide 27 mmol/L (22-30); Chloride 104 mmol/L (98-107); Estimated CRCL calculation 42 ml/min; Estimated Glomerular Filt Rate > 60; Glucose 112 mg/dL (65-110); Potassium 3.6 mmol/L (3.4-5.0); Sodium 137 mmol/L (137-145)
--- NOTE | 2022-03-23 10:02 | PM.PNGS ---
Progress Note: A&P Assessment and Plan (1) Paraesophageal hiatal hernia: Code(s): K44.9 - Diaphragmatic hernia without obstruction or gangrene Status: Acute Assessment and Plan: Patient is still experiencing dysphagia. Will get water-soluble esophagram today. Might need to start steroids to help with postoperative swelling Continue clear liquids until swallowing improves (2) Dysphagia: Code(s): R13.10 - Dysphagia, unspecified Status: Acute Subjective Subjective Date/Time Seen: 03/23/22 10:02 Interval history: Still experiencing dysphagia and regurgitation. Patient does not want to take her pills due to inability to swallow. Abdominal pain well controlled. Exam GI: Inspection: non-distended and incision (Intact with glue) GI Palp: Yes Soft to palpation, No Tenderness to palpation present (GI) and No Guarding due to palpation present (GI) Auscultation: normal bowel sounds Objective Data Vital Signs Vital Signs: Vital Signs - 24 hr 03/22/22 15:00 03/22/22 20:13 03/22/22 20:00 Temperature 36.6 C 36.1 C L Pulse Rate 63 61 61 Respiratory Rate 16 20 20 Blood Pressure 108/59 L 151/67 H Pulse Oximetry 94 96 96 Oxygen Delivery Room Air Fraction of Inspired Oxygen 35 03/23/22 03:44 Temperature 36.1 C L Pulse Rate 94 Respiratory Rate 17 Blood Pressure 124/84 Pulse Oximetry 95 Oxygen Delivery Fraction of Inspired Oxygen Intake/Output Intake/Output: Intake & Output 03/20/22 03/21/22 03/22/22 03/23/22 23:59 23:59 23:59 23:59 Intake Total 3910 2961 3379 Output Total 1650 1650 870 250 Balance 2260 1311 2509 -250 Meds/Results Medications: Active Medications Generic Name Dose Route Start Last Admin Trade Name Freq PRN Reason Stop Dose Admin Acetaminophen 500 mg 03/19/22 16:02 Acetaminophen 500 Mg Tablet PO Q6H PRN Mild Pain (1-3) or Fever Hydrocodone Bitart/Acetaminophen 1 tab 03/19/22 16:02 03/23/22 04:02 Hydrocodone/Acetaminophen (*Crx) 5-325 Mg Tablet PO 1 tab Q4H PRN Administration Pain Rated 4-6 Hydrocodone Bitart/Acetaminophen 1 tab 03/19/22 16:02 03/20/22 14:33 Hydrocodone/Acetaminophen (*Crx) 7.5-325 Mg Tablet PO 1 tab Q4H PRN Administration Pain Rated 7-10 Atorvastatin Calcium 10 mg 03/20/22 09:00 03/22/22 09:00 Atorvastatin 10 Mg Tablet PO 10 mg DAILY [facility] Administration Enoxaparin Sodium 40 mg 03/20/22 09:00 03/22/22 08:59 Enoxaparin 40 Mg/0.4 Ml Syringe SUB-Q 40 mg DAILY [facility] Administration Lactated Ringer's 1,000 mls @ 60 mls/hr 03/19/22 16:02 03/22/22 18:43 Lr - Lactated Ringers Iv IV CONT 60 mls/hr .[id number] [facility]ON Administration Ibuprofen 800 mg in 200 mls @ 400 mls/hr 03/19/22 16:02 03/20/22 22:58 Caldolor 800 Mg/200 Ml IVPB Infused Q6H PRN Infusion Pain Rated 1-3 Morphine Sulfate 1 mg 03/19/22 16:02 Morphine Sulfate (*Crx) 2 Mg/Ml Inj IV PUSH Q2H PRN Pain Rated 4-6 Morphine Sulfate 2 mg 03/19/22 16:02 Morphine Sulfate (*Crx) 4 Mg/Ml Inj IV PUSH Q2H PRN Pain Rated 7-10 Naloxone HCl 0.1 mg 03/19/22 16:02 Naloxone Hcl 0.4 Mg/Ml Vial IV PUSH Q2M PRN Opiate Reversal Ondansetron HCl 4 mg 03/19/22 16:02 03/22/22 23:29 Ondansetron Inj 4 Mg/2 Ml Vial IV PUSH 4 mg Q4H PRN Administration Nausea And Vomiting Pantoprazole Sodium 40 mg 03/21/22 09:00 03/22/22 09:00 Pantoprazole 40 Mg Tablet PO 40 mg QAM [facility] Administration Spironolactone 25 mg 03/20/22 09:00 03/22/22 09:00 Spironolactone 25 Mg Tablet PO 25 mg DAILY [facility] Administration Labs Labs: Laboratory Results - last 24 hr 03/23/22 03/23/22 04:26 04:26 WBC 6.1 RBC 3.66 L Hgb 11.4 L Hct 34.3 L MCV 93.7 MCH 31.1 MCHC 33.2 RDW 13.1 Plt Count 163 MPV 11.1 H Sodium 137 Potassium 3.6 Chloride 104 Carbon Dioxide 27 Anion Gap 6 L BUN 10 Creatinine 0.80 Estim Cr
[2022-03-23] MEDS: ENOXAPARIN 40 MG/0.4 ML SYRINGE SUB-Q (10:47)
[2022-03-23] MEDS: PANTOPRAZOLE SODIUM IV 40 MG VIAL IV PUSH (10:48)
[2022-03-23] MEDS: LACTATED RINGERS 1,000 ML 60 ML IV CONT (12:33)
[2022-03-23 13:25] VITALS: BP 124/70; PULSE 75; RESP 16; TEMP 36.3; O2SAT 95
[2022-03-23] MEDS: HYDROCORTISONE SODIUM SUCCINATE 100 MG/2 ML VIAL IV PUSH ×2 (14:14→21:03)
[2022-03-23 19:37] VITALS: BP 138/64; PULSE 58; RESP 18; TEMP 36.2; O2SAT 93
[2022-03-23 20:00] VITALS: O2SAT 93
[2022-03-23] MEDS: LACTATED RINGERS 1,000 ML 100 ML IV CONT (21:03)
[2022-03-24 03:31] VITALS: BP 136/62; PULSE 98; RESP 18; TEMP 36.2; O2SAT 93
[2022-03-24] MEDS: HYDROCORTISONE SODIUM SUCCINATE 100 MG/2 ML VIAL IV PUSH (06:18)
[2022-03-24] MEDS: ENOXAPARIN 40 MG/0.4 ML SYRINGE SUB-Q (08:06)
[2022-03-24] MEDS: PANTOPRAZOLE SODIUM IV 40 MG VIAL IV PUSH (08:06)
--- NOTE | 2022-03-24 08:09 | PM.PNGS ---
Progress Note: A&P Assessment and Plan (1) Dysphagia: Code(s): R13.10 - Dysphagia, unspecified Status: Acute Assessment and Plan: due to swelling at fundoplication site with extensive esophageal dissection during surgery. Agree with steroids. Will make patient NPO except for sips of water and ice chips. Explained the problem to the patient. Hopefully can resume liquids tomorrow or Thursday. (2) Paraesophageal hiatal hernia: Code(s): K44.9 - Diaphragmatic hernia without obstruction or gangrene Status: Acute Assessment and Plan: Repair intact per upper GI yesterday. (3) GERD (gastroesophageal reflux disease): Qualifiers: Esophagitis presence: without esophagitis Qualified Code(s): K21.9 - Gastro-esophageal reflux disease without esophagitis Code(s): K21.9 - Gastro-esophageal reflux disease without esophagitis Status: Acute Assessment and Plan: On IV Protonix. Will continue for about 30 days after surgery. Subjective Subjective Date/Time Seen: 03/24/22 08:09 Post Op day: 5 Patient reports: pain is less, afebrile and other (Still with problems of dysphagia and some regurgitation, mostly mucus.) Exam Const: General: comfortable, alert and awake GI: Inspection: non-distended and incision ( Incisions dry and healing well) GI Palp: Yes Soft to palpation and Yes Tenderness to palpation present (GI) ( minimal incisional tenderness) Objective Data Vital Signs Vital Signs: Vital Signs - 24 hr 03/23/22 13:25 03/23/22 19:37 03/23/22 20:00 Temperature 36.3 C L 36.2 C L Pulse Rate 75 58 L Respiratory Rate 16 18 Blood Pressure 124/70 138/64 Pulse Oximetry 95 93 93 Oxygen Delivery Room Air 03/24/22 03:31 Temperature 36.2 C L Pulse Rate 98 Respiratory Rate 18 Blood Pressure 136/62 Pulse Oximetry 93 Oxygen Delivery Intake/Output Intake/Output: Intake & Output 03/21/22 03/22/22 03/23/22 03/24/22 23:59 23:59 23:59 23:59 Intake Total 2961 3379 2000 200 Output Total 1650 870 350 100 Balance 1311 2509 1650 100 Meds/Results Medications: Active Medications Generic Name Dose Route Start Last Admin Trade Name Freq PRN Reason Stop Dose Admin Acetaminophen 500 mg 03/19/22 16:02 Acetaminophen 500 Mg Tablet PO Q6H PRN Mild Pain (1-3) or Fever Hydrocodone Bitart/Acetaminophen 1 tab 03/19/22 16:02 03/23/22 04:02 Hydrocodone/Acetaminophen (*Crx) 5-325 Mg Tablet PO 1 tab Q4H PRN Administration Pain Rated 4-6 Hydrocodone Bitart/Acetaminophen 1 tab 03/19/22 16:02 03/20/22 14:33 Hydrocodone/Acetaminophen (*Crx) 7.5-325 Mg Tablet PO 1 tab Q4H PRN Administration Pain Rated 7-10 Atorvastatin Calcium 10 mg 03/20/22 09:00 03/23/22 10:24 Atorvastatin 10 Mg Tablet PO Not Given DAILY [facility] Enoxaparin Sodium 40 mg 03/20/22 09:00 03/24/22 08:06 Enoxaparin 40 Mg/0.4 Ml Syringe SUB-Q 40 mg DAILY [facility] Administration Hydrocortisone Sodium Succinate 150 mg 03/24/22 14:00 Hydrocortisone Sodium Succinate 100 Mg/2 Ml Vial IV PUSH Q8HR J[facility]ON Lactated Ringer's 1,000 mls @ 70 mls/hr 03/19/22 16:02 03/23/22 21:03 Lr - Lactated Ringers Iv IV CONT 100 mls/hr .[id number] [facility]ON Administration Ibuprofen 800 mg in 200 mls @ 400 mls/hr 03/19/22 16:02 03/20/22 22:58 Caldolor 800 Mg/200 Ml IVPB Infused Q6H PRN Infusion Pain Rated 1-3 Morphine Sulfate 1 mg 03/19/22 16:02 Morphine Sulfate (*Crx) 2 Mg/Ml Inj IV PUSH Q2H PRN Pain Rated 4-6 Morphine Sulfate 2 mg 03/19/22 16:02 Morphine Sulfate (*Crx) 4 Mg/Ml Inj IV PUSH Q2H PRN Pain Rated 7-10 Naloxone HCl 0.1 mg 03/19/22 16:02 Naloxone Hcl 0.4 Mg/Ml Vial IV PUSH Q2M PRN Opiate Reversal Ondansetron HCl 4 mg 03/19/22 16:02 03/22/22 23:29 Ondansetron Inj 4 Mg/2 Ml Vial IV PUSH 4 mg Q4H PRN Administration Nausea And Vomiting Pantoprazole Sodium 40
[2022-03-24 08:15] VITALS: O2SAT 93
[2022-03-24] MEDS: LACTATED RINGERS 1,000 ML 100 ML IV CONT (08:17)
[2022-03-24 09:50] VITALS: O2SAT 96
[2022-03-24] MEDS: IBUPROFEN IV 800 MG/200 ML 800 MG/200 ML BAG 400 MG IVPB (12:17)
[2022-03-24] MEDS: HYDROCORTISONE SODIUM SUCCINATE 100 MG/2 ML VIAL 150 MG IV PUSH ×2 (13:34→20:37)
[2022-03-24 14:32] VITALS: BP 117/58; PULSE 62; RESP 14; TEMP 36.4; O2SAT 97
[2022-03-24 20:28] VITALS: BP 130/77; PULSE 83; RESP 20; TEMP 35.8; O2SAT 95
[2022-03-24] MEDS: LACTATED RINGERS 1,000 ML 70 ML IV CONT (20:36)
[2022-03-25 04:20] VITALS: BP 138/89; PULSE 88; RESP 18; TEMP 36.4; O2SAT 93
[2022-03-25 05:18] LABS: Hematocrit 36.2 % (37.0-47.0); Hemoglobin 12.4 g/dL (12.0-15.0); Mean Corpuscular HGB Conc 34.3 g/dl (32-36); Mean Corpuscular Hemoglobin 31.6 pg (26-34); Mean Corpuscular Volume 92.3 fl (80-100); Mean Platelet Volume 10.6 fl (7.4-10.4); Platelet Count Result 254 k/mm3 (150-375); Red Blood Count 3.92 M/mm3 (4.2-5.4); Red Cell Distribution Width 13.1 % (11.5-14.5); White Blood Count 6.3 K/mm3 (4.5-10.0)
[2022-03-25 05:33] LABS: Anion Gap 10 mmol/L (8-16); Blood Urea Nitrogen 22 mg/dL (7-17); Carbon Dioxide 24 mmol/L (22-30); Chloride 106 mmol/L (98-107); Estimated CRCL calculation 47 ml/min; Estimated Glomerular Filt Rate > 60; Glucose 135 mg/dL (65-110); Potassium 3.3 mmol/L (3.4-5.0); Sodium 140 mmol/L (137-145)
[2022-03-25] MEDS: HYDROCORTISONE SODIUM SUCCINATE 100 MG/2 ML VIAL 150 MG IV PUSH ×3 (06:21→22:56)
[2022-03-25] MEDS: ENOXAPARIN 40 MG/0.4 ML SYRINGE SUB-Q (08:19)
[2022-03-25] MEDS: PANTOPRAZOLE SODIUM IV 40 MG VIAL IV PUSH (08:23)
[2022-03-25 08:58] VITALS: O2SAT 95
--- NOTE | 2022-03-25 10:00 | PM.PNGS ---
Progress Note: A&P Assessment and Plan (1) Dysphagia: Code(s): R13.10 - Dysphagia, unspecified Status: Acute Assessment and Plan: Due to swelling from fundoplication. Upper GI from Thursday showed that the stomach is in the abdomen and the wrap is intact. There is certainly a lumen in which the contrast passes through into the stomach although that passage is somewhat delayed and the distal esophagus is slightly dilated. She is still coughing up some saliva so will keep NPO except sips and ice chips again today. Continue steroids at present rate. Possibly restart clear liquids tomorrow. (2) Paraesophageal hiatal hernia: Code(s): K44.9 - Diaphragmatic hernia without obstruction or gangrene Status: Acute Assessment and Plan: Status post repair with Halley fundoplication 6 days ago. Subjective Subjective Date/Time Seen: 03/25/22 10:00 Post Op day: #6 Patient reports: no new complaints, pain is less (Very comfortable, no incisional pain or chest pain), afebrile and other (Still coughing up a little saliva ) Review of Systems Review of Systems: All systems reviewed & are unremarkable except as noted in HPI and below (HPI) Exam Const: General: comfortable, alert and awake GI: Inspection: non-distended and incision (Incisions healing well) GI Palp: Yes Soft to palpation and No Tenderness to palpation present (GI) Objective Data Vital Signs Vital Signs: Vital Signs - 24 hr 03/24/22 14:32 03/24/22 20:28 03/24/22 20:00 Temperature 36.4 C L 35.8 C L Pulse Rate 62 83 Respiratory Rate 14 20 Blood Pressure 117/58 L 130/77 Pulse Oximetry 97 95 Oxygen Delivery Room Air 03/25/22 04:20 03/25/22 08:58 Temperature 36.4 C Pulse Rate 88 Respiratory Rate 18 Blood Pressure 138/89 Pulse Oximetry 93 95 Oxygen Delivery Room Air Intake/Output Intake/Output: Intake & Output 03/22/22 03/23/22 03/24/22 03/25/22 23:59 23:59 23:59 23:59 Intake Total 3379 2000 2400 0 Output Total 870 350 250 Balance 2509 1650 2150 0 Meds/Results Medications: Active Medications Generic Name Dose Route Start Last Admin Trade Name Freq PRN Reason Stop Dose Admin Acetaminophen 500 mg 03/19/22 16:02 Acetaminophen 500 Mg Tablet PO Q6H PRN Mild Pain (1-3) or Fever Hydrocodone Bitart/Acetaminophen 1 tab 03/19/22 16:02 03/23/22 04:02 Hydrocodone/Acetaminophen (*Crx) 5-325 Mg Tablet PO 1 tab Q4H PRN Administration Pain Rated 4-6 Hydrocodone Bitart/Acetaminophen 1 tab 03/19/22 16:02 03/20/22 14:33 Hydrocodone/Acetaminophen (*Crx) 7.5-325 Mg Tablet PO 1 tab Q4H PRN Administration Pain Rated 7-10 Atorvastatin Calcium 10 mg 03/20/22 09:00 03/23/22 10:24 Atorvastatin 10 Mg Tablet PO Not Given DAILY [facility] Enoxaparin Sodium 40 mg 03/20/22 09:00 03/25/22 08:19 Enoxaparin 40 Mg/0.4 Ml Syringe SUB-Q 40 mg DAILY [facility]ON Administration Hydrocortisone Sodium Succinate 150 mg 03/24/22 14:00 03/25/22 06:21 Hydrocortisone Sodium Succinate 100 Mg/2 Ml Vial IV PUSH 150 mg Q8HR JAMESON Administration Lactated Ringer's 1,000 mls @ 100 mls/hr 03/19/22 16:02 03/24/22 20:38 Lr - Lactated Ringers Iv IV CONT Not Given .Q10H [facility]ON Ibuprofen 800 mg in 200 mls @ 400 mls/hr 03/19/22 16:02 03/24/22 12:45 Caldolor 800 Mg/200 Ml IVPB Infused Q6H PRN Infusion Pain Rated 1-3 Morphine Sulfate 1 mg 03/19/22 16:02 Morphine Sulfate (*Crx) 2 Mg/Ml Inj IV PUSH Q2H PRN Pain Rated 4-6 Morphine Sulfate 2 mg 03/19/22 16:02 Morphine Sulfate (*Crx) 4 Mg/Ml Inj IV PUSH Q2H PRN Pain Rated 7-10 Naloxone HCl 0.1 mg 03/19/22 16:02 Naloxone Hcl 0.4 Mg/Ml Vial IV PUSH Q2M PRN Opiate Reversal Ondansetron HCl 4 mg 03/19/22 16:02 03/22/22 23:29 Ondansetron Inj 4 Mg/2 Ml Vial IV PUSH 4 mg Q4H PRN Administration Nausea And Vomiting Pantoprazole Sodium 40 mg 03/23/22 10:10 07
[2022-03-25] MEDS: KCL 40 MEQ/D5/0.9% SOD CHL 1,000 ML 80 ML IV CONT ×2 (10:56→23:00)
[2022-03-25 14:00] VITALS: BP 145/78; PULSE 80; RESP 18; TEMP 36.9; O2SAT 94
[2022-03-25] MEDS: MORPHINE SULFATE (*CRX) 4 MG/ML INJ 2 MG IV PUSH (14:12)
[2022-03-25 20:00] VITALS: PULSE 90; RESP 20; O2SAT 95
[2022-03-25 20:39] VITALS: BP 150/81; PULSE 90; RESP 20; TEMP 36.1; O2SAT 95
[2022-03-25] MEDS: IBUPROFEN IV 800 MG/200 ML 800 MG/200 ML BAG 400 MG IVPB (23:09)
[2022-03-26 04:04] VITALS: BP 141/81; PULSE 79; RESP 20; TEMP 35.7; O2SAT 95
[2022-03-26 05:05] LABS: Hematocrit 36.2 % (37.0-47.0); Hemoglobin 11.7 g/dL (12.0-15.0); Mean Corpuscular HGB Conc 32.3 g/dl (32-36); Mean Corpuscular Hemoglobin 30.7 pg (26-34); Mean Platelet Volume 10.4 fl (7.4-10.4); Platelet Count Result 243 k/mm3 (150-375); Red Blood Count 3.81 M/mm3 (4.2-5.4); Red Cell Distribution Width 13.2 % (11.5-14.5); White Blood Count 5.7 K/mm3 (4.5-10.0)
[2022-03-26] MEDS: HYDROCORTISONE SODIUM SUCCINATE 100 MG/2 ML VIAL 150 MG IV PUSH (05:13)
[2022-03-26 05:18] LABS: Anion Gap 5 mmol/L (8-16); Blood Urea Nitrogen 25 mg/dL (7-17); Calcium 7.8 mg/dL (8.4-10.2); Carbon Dioxide 25 mmol/L (22-30); Chloride 109 mmol/L (98-107); Estimated CRCL calculation 47 ml/min; Estimated Glomerular Filt Rate > 60; Glucose 197 mg/dL (65-110); Sodium 139 mmol/L (137-145)
--- NOTE | 2022-03-26 07:55 | PM.PNGS ---
Progress Note: A&P Assessment and Plan (1) Dysphagia: Code(s): R13.10 - Dysphagia, unspecified Status: Acute Assessment and Plan: will go ahead and restart clear liquids today. Hold off on any pills other than Tylenol. Reduce Solu-Cortef to on 100 mg IV Q 8. (2) Paraesophageal hiatal hernia: Code(s): K44.9 - Diaphragmatic hernia without obstruction or gangrene Status: Acute Subjective Subjective Date/Time Seen: 03/26/22 07:55 Post Op day: #7 Patient reports: feels better (Not spitting up any saliva since yesterday morning, feels much better), pain is less ( no complaints of abdominal pain) and afebrile Review of Systems Review of Systems: All systems reviewed & are unremarkable except as noted in HPI and below ( HPI) Exam Const: General: comfortable, alert and awake GI: GI Palp: Yes Soft to palpation and No Tenderness to palpation present (GI) Objective Data Vital Signs Vital Signs: Vital Signs - 24 hr 03/25/22 08:58 03/25/22 14:00 03/25/22 20:39 Temperature 36.9 C 36.1 C L Pulse Rate 80 90 Respiratory Rate 18 20 Blood Pressure 145/78 H 150/81 H Pulse Oximetry 95 94 95 Oxygen Delivery Room Air Fraction of Inspired Oxygen 03/25/22 20:00 03/26/22 04:04 Temperature 35.7 C L Pulse Rate 90 79 Respiratory Rate 20 20 Blood Pressure 141/81 H Pulse Oximetry 95 95 Oxygen Delivery Room Air Fraction of Inspired Oxygen 35 Intake/Output Intake/Output: Intake & Output 03/23/22 03/24/22 03/25/22 03/26/22 23:59 23:59 23:59 23:59 Intake Total 1999 2400 2200 290 Output Total 350 250 450 Balance 1650 2150 1750 290 Meds/Results Medications: Active Medications Generic Name Dose Route Start Last Admin Trade Name Freq PRN Reason Stop Dose Admin Acetaminophen 500 mg 03/19/22 16:02 Acetaminophen 500 Mg Tablet PO Q6H PRN Mild Pain (1-3) or Fever Hydrocodone Bitart/Acetaminophen 1 tab 03/19/22 16:02 03/23/22 04:02 Hydrocodone/Acetaminophen (*Crx) 5-325 Mg Tablet PO 1 tab Q4H PRN Administration Pain Rated 4-6 Hydrocodone Bitart/Acetaminophen 1 tab 03/19/22 16:02 03/20/22 14:33 Hydrocodone/Acetaminophen (*Crx) 7.5-325 Mg Tablet PO 1 tab Q4H PRN Administration Pain Rated 7-10 Atorvastatin Calcium 10 mg 03/20/22 09:00 03/23/22 10:24 Atorvastatin 10 Mg Tablet PO Not Given DAILY [facility] Enoxaparin Sodium 40 mg 03/20/22 09:00 03/25/22 08:19 Enoxaparin 40 Mg/0.4 Ml Syringe SUB-Q 40 mg DAILY [facility]ON Administration Hydrocortisone Sodium Succinate 100 mg 03/26/22 14:00 Hydrocortisone Sodium Succinate 100 Mg/2 Ml Vial IV PUSH Q8HR [facility]ON Ibuprofen 800 mg in 200 mls @ 400 mls/hr 03/19/22 16:02 03/25/22 23:30 Caldolor 800 Mg/200 Ml IVPB Infused Q6H PRN Infusion Pain Rated 1-3 Potassium Chloride/Dextrose/Sod Cl 1,000 mls @ 60 mls/hr 03/25/22 10:05 03/25/22 23:00 Kcl 40 Meq/D5ns IV CONT 80 mls/hr .[id number] JAMESON Administration Morphine Sulfate 1 mg 03/19/22 16:02 Morphine Sulfate (*Crx) 2 Mg/Ml Inj IV PUSH Q2H PRN Pain Rated 4-6 Morphine Sulfate 2 mg 03/19/22 16:02 03/25/22 14:12 Morphine Sulfate (*Crx) 4 Mg/Ml Inj IV PUSH 2 mg Q2H PRN Administration Pain Rated 7-10 Naloxone HCl 0.1 mg 03/19/22 16:02 Naloxone Hcl 0.4 Mg/Ml Vial IV PUSH Q2M PRN Opiate Reversal Ondansetron HCl 4 mg 03/19/22 16:02 03/22/22 23:29 Ondansetron Inj 4 Mg/2 Ml Vial IV PUSH 4 mg Q4H PRN Administration Nausea And Vomiting Pantoprazole Sodium 40 mg 03/23/22 10:10 03/25/22 08:23 Pantoprazole Sodium Iv 40 Mg Vial IV PUSH 40 mg QAM JAMESON Administration Spironolactone 25 mg 03/20/22 09:00 03/23/22 10:25 Spironolactone 25 Mg Tablet PO Not Given DAILY [facility] Radiology Results: ITS Impressions Esophagus X-Ray 03/23/22 13:00 IMPRESSION: 1. Severe narrowing of the distal esophagus at the gastroesophageal junction wi
[2022-03-26] MEDS: PANTOPRAZOLE SODIUM IV 40 MG VIAL IV PUSH (08:39)
[2022-03-26] MEDS: ENOXAPARIN 40 MG/0.4 ML SYRINGE SUB-Q (08:39)
[2022-03-26] MEDS: HYDROCORTISONE SODIUM SUCCINATE 100 MG/2 ML VIAL IV PUSH ×2 (14:20→22:00)
[2022-03-26] MEDS: KCL 40 MEQ/D5/0.9% SOD CHL 1,000 ML 60 ML IV CONT (14:21)
[2022-03-26 14:33] VITALS: BP 131/77; PULSE 73; RESP 20; TEMP 36.8; O2SAT 97
[2022-03-26 20:00] VITALS: PULSE 62; RESP 20; O2SAT 96
[2022-03-26 20:38] VITALS: BP 139/88; PULSE 62; RESP 20; TEMP 36.5; O2SAT 96
[2022-03-27 03:53] VITALS: BP 120/69; PULSE 76; RESP 20; TEMP 36.1; O2SAT 95
[2022-03-27] MEDS: HYDROCORTISONE SODIUM SUCCINATE 100 MG/2 ML VIAL IV PUSH (05:43)
[2022-03-27] MEDS: KCL 40 MEQ/D5/0.9% SOD CHL 1,000 ML 60 ML IV CONT ×2 (05:46→22:11)
[2022-03-27] MEDS: PANTOPRAZOLE SODIUM IV 40 MG VIAL IV PUSH (09:05)
[2022-03-27] MEDS: ENOXAPARIN 40 MG/0.4 ML SYRINGE SUB-Q (09:05)
--- NOTE | 2022-03-27 10:38 | PCNWS ---
Weekly nutritional screen. Patient is tolerating current diet with adequate intake. No weight loss reported. No nutritional needs at this time.
--- NOTE | 2022-03-27 11:43 | PM.PNGS ---
Progress Note: A&P Assessment and Plan (1) Dysphagia: Code(s): R13.10 - Dysphagia, unspecified Status: Acute Assessment and Plan: Seems to be improving. Reduce Solu-Cortef to 50 mg IVP Q8H. Will advance to full liquids today. Encouraged the patient to take very small bites when eating and be cautious with her oral intake. (2) Paraesophageal hiatal hernia: Code(s): K44.9 - Diaphragmatic hernia without obstruction or gangrene Status: Acute (3) Dyspnea: Qualifiers: Dyspnea type: shortness of breath Qualified Code(s): R06.02 - Shortness of breath Code(s): R06.00 - Dyspnea, unspecified Status: Acute Assessment and Plan: Episode of shortness of breath last night that has since resolved. No associated chest pain or feelings of her heart racing. She is not hypoxic and in no respiratory distress. Will order a chest x-ray today. Plan I have discussed the patient's case and plan of care with Dr. Morrison. Subjective Subjective Date/Time Seen: 03/27/22 11:43 Post Op day: 8 (Repair of paraesophageal hiatal hernia with Halley fundoplication) Patient reports: feels better, tolerating liquids well, flatus, bowel movement (large BM today), shortness of breath and afebrile Interval history: Denies dysphagia or reflux. She reports having an episode of shortness of breath last night where she was lying flat in bed but not asleep, and felt like she was gasping for air. She can't tell me when this improved, but when talking to her today she is able to speak in complete sentences and has no evidence of respiratory distress. She did not tell the nurse when this occurred and denies ever requiring oxygen. She denies chest pain or pressure. She is sitting up in the chair and appears comfortable. Review of Systems Review of Systems: All systems reviewed & are unremarkable except as noted in HPI and below Exam Const: General: comfortable, no acute distress and awake Orientation/consciousness: patient oriented x3 Resp: Effort & Inspection: normal respiratory effort Auscultation: clear to auscultation bilaterally Cardio: Rate: regular rate Rhythm: regular rhythm GI: Inspection: non-distended and incision (Incisions healing well) GI Palp: Yes Soft to palpation and Yes Tenderness to palpation present (GI) (incisional) Auscultation: normal bowel sounds Neuro: General: moves all extremities and no focal motor deficits Extrem: General: no calf tenderness and no edema Psych: Affect: normal affect Thought process: Normal thought process present Objective Data Vital Signs Vital Signs: Vital Signs - 24 hr 03/26/22 14:33 03/26/22 20:38 03/26/22 20:00 Temperature 98.2 F 97.7 F Pulse Rate 73 62 62 Respiratory Rate 20 20 20 Blood Pressure 131/77 139/88 Pulse Oximetry 97 96 96 Oxygen Delivery Room Air Fraction of Inspired Oxygen 35 03/27/22 03:53 03/27/22 08:00 Temperature 96.9 F L Pulse Rate 76 Respiratory Rate 20 Blood Pressure 120/69 Pulse Oximetry 95 Oxygen Delivery Room Air Fraction of Inspired Oxygen Intake/Output Intake/Output: Intake & Output 03/24/22 03/25/22 03/26/22 03/27/22 23:59 23:59 23:59 23:59 Intake Total 2400 2200 2130 1770 Output Total 250 450 Balance 2150 1750 2130 1770 Meds/Results Medications: Active Medications Generic Name Dose Route Start Last Admin Trade Name Freq PRN Reason Stop Dose Admin Acetaminophen 500 mg 03/19/22 16:02 Acetaminophen 500 Mg Tablet PO Q6H PRN Mild Pain (1-3) or Fever Hydrocodone Bitart/Acetaminophen 1 tab 03/19/22 16:02 03/23/22 04:02 Hydrocodone/Acetaminophen (*Crx) 5-325 Mg Tablet PO 1 tab Q4H PRN Administration Pain Rated 4-6 Hydrocodone Bitart/Acetaminophen 1 tab 03/19/22 16:02 03/20/22 14:33 Hydrocodone/Acetaminophen (*Crx) 7.5-325 Mg Tablet PO 1 tab Q4H PRN Administration Pain Rated 7-10 Atorvastatin Calcium 10 mg 03/20/22 09:00
[2022-03-27] MEDS: HYDROCORTISONE SODIUM SUCCINATE 100 MG/2 ML VIAL 50 MG IV PUSH ×2 (14:44→20:25)
[2022-03-27 15:21] VITALS: BP 135/80; PULSE 61; RESP 16; TEMP 36.4; O2SAT 99
[2022-03-27 17:19] VITALS: O2SAT 96
[2022-03-27 20:41] VITALS: BP 144/82; PULSE 77; RESP 20; TEMP 36.3; O2SAT 96
[2022-03-27] MEDS: IBUPROFEN IV 800 MG/200 ML 800 MG/200 ML BAG 200 MG IVPB (22:15)
[2022-03-28 04:19] VITALS: BP 130/73; PULSE 64; RESP 18; TEMP 35.6; O2SAT 98
[2022-03-28] MEDS: HYDROCORTISONE SODIUM SUCCINATE 100 MG/2 ML VIAL 50 MG IV PUSH ×2 (06:00→20:39)
[2022-03-28] MEDS: PANTOPRAZOLE SODIUM IV 40 MG VIAL IV PUSH (08:02)
[2022-03-28] MEDS: ENOXAPARIN 40 MG/0.4 ML SYRINGE SUB-Q (08:02)
--- NOTE | 2022-03-28 12:24 | PM.PNGS ---
Progress Note: A&P Assessment and Plan (1) Dysphagia: Code(s): R13.10 - Dysphagia, unspecified Status: Acute Assessment and Plan: continues to improve. Will reduce Solu-Cortef to 50 mg Q 12. Continue full liquid diet. Saline lock IV fluids. Recheck labs again tomorrow. Possibly home tomorrow or Thursday. (2) Paraesophageal hiatal hernia: Code(s): K44.9 - Diaphragmatic hernia without obstruction or gangrene Status: Acute Assessment and Plan: Repair intact. Swelling at fundoplication improving. Subjective Subjective Date/Time Seen: 03/28/22 12:24 Post Op day: #9 Patient reports: feels better, pain is less ( no complaints of pain), tolerating liquids well, bowel movement and other ( no problems swallowing liquid.) Exam GI: Inspection: incision ( Dry intact and healing well) GI Palp: Yes Soft to palpation and No Tenderness to palpation present (GI) Objective Data Vital Signs Vital Signs: Vital Signs - 24 hr 03/27/22 15:21 03/27/22 17:19 03/27/22 20:41 Temperature 36.4 C L 36.3 C L Pulse Rate 61 77 Respiratory Rate 16 20 Blood Pressure 135/80 144/82 H Pulse Oximetry 99 96 96 Oxygen Delivery Room Air 03/27/22 20:00 03/28/22 04:19 03/28/22 08:00 Temperature 35.6 C L Pulse Rate 64 Respiratory Rate 18 Blood Pressure 130/73 Pulse Oximetry 98 Oxygen Delivery Room Air Room Air Intake/Output Intake/Output: Intake & Output 03/25/22 03/26/22 03/27/22 03/28/22 23:59 23:59 23:59 23:59 Intake Total 2200 2130 3750 840 Output Total 450 Balance 1750 2130 3750 840 Meds/Results Medications: Active Medications Generic Name Dose Route Start Last Admin Trade Name Freq PRN Reason Stop Dose Admin Acetaminophen 500 mg 03/19/22 16:02 Acetaminophen 500 Mg Tablet PO Q6H PRN Mild Pain (1-3) or Fever Hydrocodone Bitart/Acetaminophen 1 tab 03/19/22 16:02 03/23/22 04:02 Hydrocodone/Acetaminophen (*Crx) 5-325 Mg Tablet PO 1 tab Q4H PRN Administration Pain Rated 4-6 Hydrocodone Bitart/Acetaminophen 1 tab 03/19/22 16:02 03/20/22 14:33 Hydrocodone/Acetaminophen (*Crx) 7.5-325 Mg Tablet PO 1 tab Q4H PRN Administration Pain Rated 7-10 Atorvastatin Calcium 10 mg 03/20/22 09:00 03/23/22 10:24 Atorvastatin 10 Mg Tablet PO Not Given DAILY [facility] Enoxaparin Sodium 40 mg 03/20/22 09:00 03/28/22 08:02 Enoxaparin 40 Mg/0.4 Ml Syringe SUB-Q 40 mg DAILY [facility] Administration Hydrocortisone Sodium Succinate 50 mg 03/28/22 12:25 Hydrocortisone Sodium Succinate 100 Mg/2 Ml Vial IV PUSH Q12H [facility] Potassium Chloride/Dextrose/Sod Cl 1,000 mls @ 60 mls/hr 03/25/22 10:05 03/27/22 22:11 Kcl 40 Meq/D5ns IV CONT 60 mls/hr .[id number] [facility] Administration Ibuprofen 800 mg in 200 mls @ 400 mls/hr 03/28/22 12:23 Caldolor 800 Mg/200 Ml IVPB Q6H PRN Pain Rated 4-6 Morphine Sulfate 2 mg 03/19/22 16:02 03/25/22 14:12 Morphine Sulfate (*Crx) 4 Mg/Ml Inj IV PUSH 2 mg Q2H PRN Administration Pain Rated 7-10 Naloxone HCl 0.1 mg 03/19/22 16:02 Naloxone Hcl 0.4 Mg/Ml Vial IV PUSH Q2M PRN Opiate Reversal Ondansetron HCl 4 mg 03/19/22 16:02 03/22/22 23:29 Ondansetron Inj 4 Mg/2 Ml Vial IV PUSH 4 mg Q4H PRN Administration Nausea And Vomiting Pantoprazole Sodium 40 mg 03/29/22 09:00 Pantoprazole 40 Mg Tablet PO QAM [facility] Spironolactone 25 mg 03/20/22 09:00 03/23/22 10:25 Spironolactone 25 Mg Tablet PO Not Given DAILY [facility] Radiology Results: ITS Impressions Esophagus X-Ray 03/23/22 13:00 IMPRESSION: 1. Severe narrowing of the distal esophagus at the gastroesophageal junction with nearly indiscernible threadlike lumen at this location which may be due to a prior Halley fundoplication in the provided history of hiatal hernia repair. The presence of residual previously ingested debris within the distal esophagus suggests
[2022-03-28 14:00] VITALS: BP 137/64; PULSE 70; RESP 16; TEMP 36.5; O2SAT 98
[2022-03-28] MEDS: KCL 40 MEQ/D5/0.9% SOD CHL 1,000 ML 60 ML IV CONT (16:16)
[2022-03-28 21:55] VITALS: BP 132/73; PULSE 69; RESP 20; TEMP 36.7; O2SAT 98
[2022-03-29 05:38] LABS: Hematocrit 36.1 % (37.0-47.0); Hemoglobin 11.4 g/dL (12.0-15.0); Mean Corpuscular HGB Conc 31.6 g/dl (32-36); Mean Corpuscular Volume 98.1 fl (80-100); Mean Platelet Volume 10.5 fl (7.4-10.4); Platelet Count Result 240 k/mm3 (150-375); Red Blood Count 3.68 M/mm3 (4.2-5.4); Red Cell Distribution Width 13.6 % (11.5-14.5); White Blood Count 7.7 K/mm3 (4.5-10.0)
[2022-03-29 05:43] VITALS: BP 138/87; PULSE 75; RESP 20; TEMP 36.5; O2SAT 97
[2022-03-29 05:47] LABS: Anion Gap 5 mmol/L (8-16); Blood Urea Nitrogen 20 mg/dL (7-17); Calcium 7.4 mg/dL (8.4-10.2); Carbon Dioxide 19 mmol/L (22-30); Chloride 112 mmol/L (98-107); Estimated CRCL calculation 54 ml/min; Estimated Glomerular Filt Rate > 60; Glucose 138 mg/dL (65-110); Potassium 4.9 mmol/L (3.4-5.0); Sodium 136 mmol/L (137-145)
[2022-03-29] MEDS: HYDROCORTISONE SODIUM SUCCINATE 100 MG/2 ML VIAL 50 MG IV PUSH (07:56)
[2022-03-29] MEDS: ENOXAPARIN 40 MG/0.4 ML SYRINGE SUB-Q (07:56)
[2022-03-29] MEDS: ATORVASTATIN 10 MG TABLET PO (07:56)
[2022-03-29] MEDS: PANTOPRAZOLE 40 MG TABLET PO (07:57)
[2022-03-29] MEDS: SPIRONOLACTONE 25 MG TABLET PO (07:57)
--- NOTE | 2022-03-29 11:43 | PM.PNGS ---
Progress Note: A&P Assessment and Plan (1) Dysphagia: Code(s): R13.10 - Dysphagia, unspecified Status: Acute Assessment and Plan: did well with pills and full liquids. Will reduce Solu-Cortef to 25 mg Q 12. Try low-fiber diet with small bites and eating slowly. Hopefully home tomorrow. (2) Paraesophageal hiatal hernia: Code(s): K44.9 - Diaphragmatic hernia without obstruction or gangrene Status: Acute Assessment and Plan: Repair intact. Incisions healing well. Subjective Subjective Date/Time Seen: 03/29/22 11:43 Post Op day: 10 Patient reports: feels better, tolerating liquids well, bowel movement and afebrile Exam Const: General: comfortable, alert and awake GI: Inspection: incision ( Healing well) GI Palp: Yes Soft to palpation and No Tenderness to palpation present (GI) Auscultation: normal bowel sounds Objective Data Vital Signs Vital Signs: Vital Signs - 24 hr 03/28/22 14:00 03/28/22 20:00 03/28/22 21:55 Temperature 36.5 C 36.7 C Pulse Rate 70 69 Respiratory Rate 16 20 Blood Pressure 137/64 132/73 Pulse Oximetry 98 98 Oxygen Delivery Room Air 03/29/22 05:43 Temperature 36.5 C Pulse Rate 75 Respiratory Rate 20 Blood Pressure 138/87 Pulse Oximetry 97 Oxygen Delivery Intake/Output Intake/Output: Intake & Output 03/26/22 03/27/22 03/28/22 03/29/22 23:59 23:59 23:59 23:59 Intake Total 2130 3750 2440 520 Output Total 200 700 Balance 2130 3750 2240 -180 Meds/Results Medications: Active Medications Generic Name Dose Route Start Last Admin Trade Name Freq PRN Reason Stop Dose Admin Acetaminophen 500 mg 03/19/22 16:02 Acetaminophen 500 Mg Tablet PO Q6H PRN Mild Pain (1-3) or Fever Hydrocodone Bitart/Acetaminophen 1 tab 03/19/22 16:02 03/23/22 04:02 Hydrocodone/Acetaminophen (*Crx) 5-325 Mg Tablet PO 1 tab Q4H PRN Administration Pain Rated 4-6 Hydrocodone Bitart/Acetaminophen 1 tab 03/19/22 16:02 03/20/22 14:33 Hydrocodone/Acetaminophen (*Crx) 7.5-325 Mg Tablet PO 1 tab Q4H PRN Administration Pain Rated 7-10 Atorvastatin Calcium 10 mg 03/20/22 09:00 03/29/22 07:56 Atorvastatin 10 Mg Tablet PO 10 mg DAILY JAMESON Administration Enoxaparin Sodium 40 mg 03/20/22 09:00 03/29/22 07:56 Enoxaparin 40 Mg/0.4 Ml Syringe SUB-Q 40 mg DAILY JAMESON Administration Hydrocortisone Sodium Succinate 25 mg 03/29/22 21:00 Hydrocortisone Sodium Succinate 100 Mg/2 Ml Vial IV PUSH Q12HR [facility] Ibuprofen 800 mg in 200 mls @ 400 mls/hr 03/28/22 12:23 Caldolor 800 Mg/200 Ml IVPB Q6H PRN Pain Rated 4-6 Morphine Sulfate 2 mg 03/19/22 16:02 03/25/22 14:12 Morphine Sulfate (*Crx) 4 Mg/Ml Inj IV PUSH 2 mg Q2H PRN Administration Pain Rated 7-10 Naloxone HCl 0.1 mg 03/19/22 16:02 Naloxone Hcl 0.4 Mg/Ml Vial IV PUSH Q2M PRN Opiate Reversal Ondansetron HCl 4 mg 03/19/22 16:02 03/22/22 23:29 Ondansetron Inj 4 Mg/2 Ml Vial IV PUSH 4 mg Q4H PRN Administration Nausea And Vomiting Pantoprazole Sodium 40 mg 03/29/22 09:00 03/29/22 07:57 Pantoprazole 40 Mg Tablet PO 40 mg QAM JAMESON Administration Spironolactone 25 mg 03/20/22 09:00 03/29/22 07:57 Spironolactone 25 Mg Tablet PO 25 mg DAILY JAMESON Administration Radiology Results: ITS Impressions Esophagus X-Ray 03/23/22 13:00 IMPRESSION: 1. Severe narrowing of the distal esophagus at the gastroesophageal junction with nearly indiscernible threadlike lumen at this location which may be due to a prior Halley fundoplication in the provided history of hiatal hernia repair. The presence of residual previously ingested debris within the distal esophagus suggests represents an ongoing fixed obstruction. Correlate with details of the prior surgery. Chest X-Ray 03/27/22 13:25 IMPRESSION: 1. Small pleural effusions with minimal bibasilar airspace opacities
[2022-03-29 15:46] VITALS: BP 132/74; PULSE 66; RESP 20; TEMP 36.4; O2SAT 98
[2022-03-29 20:29] VITALS: BP 140/90; PULSE 63; RESP 20; TEMP 36.5; O2SAT 97
[2022-03-29] MEDS: HYDROcodone/acetaminophen (*CRX) 5-325 MG TABLET 1 TAB PO (20:41)
[2022-03-29] MEDS: HYDROCORTISONE SODIUM SUCCINATE 100 MG/2 ML VIAL 25 MG IV PUSH (20:42)
[2022-03-30 05:55] LABS: Anion Gap 5 mmol/L (8-16); Blood Urea Nitrogen 20 mg/dL (7-17); Calcium 7.6 mg/dL (8.4-10.2); Carbon Dioxide 24 mmol/L (22-30); Chloride 107 mmol/L (98-107); Estimated CRCL calculation 47 ml/min; Estimated Glomerular Filt Rate > 60; Glucose 121 mg/dL (65-110); Potassium 4.3 mmol/L (3.4-5.0); Sodium 136 mmol/L (137-145)
[2022-03-30 06:00] VITALS: BP 150/86; PULSE 84; RESP 16; TEMP 36.5; O2SAT 98
[2022-03-30] MEDS: PANTOPRAZOLE 40 MG TABLET PO (08:35)
[2022-03-30] MEDS: ATORVASTATIN 10 MG TABLET PO (08:35)
[2022-03-30] MEDS: ENOXAPARIN 40 MG/0.4 ML SYRINGE SUB-Q (08:36)
[2022-03-30] MEDS: HYDROCORTISONE SODIUM SUCCINATE 100 MG/2 ML VIAL 25 MG IV PUSH (08:36)
--- NOTE | 2022-03-30 10:19 | PM.DS ---
DS: Admitting Diagnosis Discharge Date 03/30/2022 Admitting Diagnosis Paraesophageal hiatal hernia Essential hypertension DS: Discharge Diagnosis Discharge Diagnosis (1) Paraesophageal hiatal hernia: Code(s): K44.9 - Diaphragmatic hernia without obstruction or gangrene Status: Chronic (2) Dysphagia: Code(s): R13.10 - Dysphagia, unspecified Status: Acute DS: Summary Hospital Course Hospital Course: Patient is an 81-year-old woman who presented with a large hiatal hernia, paraesophageal with an intrathoracic stomach. She had preoperative evaluation including cardiac evaluation prior to surgery. She was having obstructive symptoms as well as shortness of breath from the large hernia. She was prepared for surgery and then taken to the operating room on 03/19/2022. She underwent laparoscopic repair of the paraesophageal hiatal hernia with Halley fundoplication. Initially the patient did well. She was very sleepy after surgery and a little disoriented. I do not think she quite understood the importance of eating slowly us in small amounts. None the less she developed severe dysphagia with difficulty even swallowing her saliva. Upper GI was done and showed contrast passed into the stomach but there was narrowing in the distal esophagus at the gastroesophageal junction. This is not uncommon as there is postoperative swelling after the fundoplication typically. The patient was started on IV hydrocortisone and kept NPO a couple of days. She was then able to be gradually tapered off the steroids and her diet advanced from liquids to eventually yesterday low fiber diet. By the day of discharge, she was tolerating full liquids and a low-fiber diet without difficulty. She was in good condition and ambulating back to baseline with minimal need for analgesics. Her wounds healed well. She was able to be discharged in good condition on 03/30/2022. Status at Discharge Functional status at discharge: independent ambulation Overall status at discharge: patient is progressing back to baseline Time Spent with Patient Time attestation: Total time spent providing and/or coordinating discharge services: Time spent: Less than 30 minutes Exam Const: General: comfortable and no acute distress; No confusion Resp: Effort & Inspection: normal respiratory effort Auscultation: clear to auscultation bilaterally Cardio: Rate: regular rate Rhythm: regular rhythm GI: Inspection: incision (All incisions dry and healing well) GI Palp: Yes Soft to palpation, No Tenderness to palpation present (GI), No Guarding due to palpation present (GI) and No Rebound tenderness present Auscultation: normal bowel sounds Neuro: General: no focal motor deficits and No confusion Extrem: General: no calf tenderness and no edema Psych: Affect: normal affect Insight: Good insight present (Psych) Judgement: Good judgement present (Psych) DS: Data Data Completed and Pending Labs on day of discharge: Labs from last 24 hours 03/30/22 05:01 Sodium 136 L Potassium 4.3 Chloride 107 Carbon Dioxide 24 Anion Gap 5 L BUN 20 H Creatinine 0.70 Estim Creat Clear Calc 47 Estimated GFR > 60 Glucose 121 H Calcium 7.6 L Discharge Plan Discharge Attending physician on discharge: Sherman Morrison Discharging Clinician: Sherman Morrison Anticipated Discharge Date/Time: 03/30/22 10:26 Patient Disposition: Home, Self-Care Activity: may shower, no straining and as tolerated Diet: low fiber Wound Care Instructions: incision open to air Discharge Instructions: Ambulate 3-4 x per day and as tolerated. No lifting over 15-20lbs. May bathe or shower. Stairs are OK. May drive a car in 2 days. Primarily full liquid diet. May have some soft foods that do not require chewing. Eat small amounts and eat slowly. Use a baby spoon to eat. Patient Instructions: Antibiotic Form, Hydrocortisone (By injection) St
== END 2022-03-30 12:33 | disposition home or self-care (01) | DRG 328 ==
LOC: ANHSURGERY 16:52 → ANH2MED 16:52
PROVIDERS: Nurse Practitioner Family; Surgery; Admitting Provider Surgery; PCP Internal Medicine; Visit Provider Surgery
PROC: 0DV44ZZ Restriction of Esophagogastric Junction, Percutaneous Endoscopic Approach (ICD-10-PCS; CPT 43281; principal; 2022-03-19 08:30)
DX: K44.9 Diaphragmatic hernia without obstruction or gangrene (principal); K21.9 Gastro-esophageal reflux disease without esophagitis; R13.19 Other dysphagia; I10 Essential (primary) hypertension; E78.5 Hyperlipidemia, unspecified; I48.91 Unspecified atrial fibrillation; Z87.891 Personal history of nicotine dependence; Z85.3 Personal history of malignant neoplasm of breast; Z90.710 Acquired absence of both cervix and uterus
CPT/HCPCS: 36415; 71046; 74220; 80048; 85027; 85055; 94002; A9270; C9113; J0690; J1100; J1650; J1720; J1741; J2270; J2405; J2704; J2710; J3010; J3480; J7030; J7120

== ENCOUNTER 2022-04-02 08:08 | Outpatient (CLI) | payer MEDICARE, BC, SELFPAY ==
--- NOTE | ~2022-04-02 | US_ITS ---
EXAMINATION:US venous doppler LE BI INDICATION:Leg edema TECHNIQUE: Multiple grayscale, color flow and Doppler images of the right and left lower extremity de ep venous systems were obtained and reviewed. COMPARISON:03/06/2020 FINDINGS: The common femoral, superficial femoral and popliteal veins demonstrate normal respiratory variation, augmentation and compressibility. Color flow is also seen within the posterior tibial, pe roneal, greater saphenous and profunda veins. IMPRESSION: 1: No lower extremity deep venous thrombosis. Reviewed, dictated and finalized at location A.
== END 2022-04-02 08:09 | disposition home or self-care (01) ==
LOC: ANHIMG 08:14
PROVIDERS: PCP Internal Medicine; Visit Provider Surgery
DX: R60.0 Localized edema (principal)
CPT/HCPCS: 93970

== ENCOUNTER 2022-10-24 11:58 | Outpatient (CLI) | payer MEDICARE, BC, SELFPAY ==
--- NOTE | ~2022-10-24 | XR_ITS ---
XR chest 2V 10/24/2022 12:22 Indication: Chronic dyspnea. History of CHF. Procedure: PA and lateral views of the chest Comparison: Comparison to multiple prior studies sequentially, with oldest reviewed study dated 01/09. Findings: Heart size normal. No focal air space disease, pulmonary edema, pleural effusion or suspect ed pneumothorax. There is scoliosis. There is atherosclerosis. The lungs are hyperinflated which is c onsistent with, but not diagnostic of chronic obstructive pulmonary disease. Impression: 1: No acute cardiopulmonary disease. Reviewed, dictated and finalized at location B. T EXPERIENCE SPECIALIST Impression: 1: No acute cardiopulmonary disease.
== END 2022-10-24 11:59 | disposition home or self-care (01) ==
LOC: CHSIMG 12:01
PROVIDERS: PCP Internal Medicine; Visit Provider Internal Medicine
DX: G31.84 Mild cognitive impairment of uncertain or unknown etiology (principal); I50.9 Heart failure, unspecified; R06.00 Dyspnea, unspecified; E78.5 Hyperlipidemia, unspecified
CPT/HCPCS: 71046

== ENCOUNTER 2023-03-12 11:36 | Outpatient (CLI) | payer MEDICARE, BC, SELFPAY ==
--- NOTE | ~2023-03-12 | XR_ITS ---
EXAMINATION: XR knee RT 3V DATE: 03/12/2023 11:55 INDICATION: Right knee pain TECHNIQUE: Three views of the right knee were obtained. COMPARISON: None. FINDINGS: No fracture or osteochondral lesion. There is tricompartmental osteoarthritis, moderate in the patellofemoral and moderate to severe in the lateral compartment. No joint effusion/synovitis. C alcified atherosclerosis is noted. IMPRESSION: 1. 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 Reviewed, dictated and finalized at location L. IMPRESSION: 1. Tricompartmental osteoarthritis, moderate to severe in the lateral compartme nt and moderate in the patellofemoral compartment.
== END 2023-03-12 11:37 | disposition home or self-care (01) ==
LOC: CHSIMG 11:37
PROVIDERS: PCP Internal Medicine; Visit Provider Internal Medicine
DX: M25.561 Pain in right knee (principal); M17.11 Unilateral primary osteoarthritis, right knee
CPT/HCPCS: 73562

== ENCOUNTER 2023-03-16 14:54 | Outpatient (RCR) | payer MEDICARE, BC, SELFPAY ==
--- NOTE | 2023-03-16 17:12 | OPREHPOC ---
Outpatient Therapy Plan of Care This is a Multidisciplinary Plan of Care that may contain components documented by all disciplines (PT, OT, and ST.) PT Problem 1 PT Problem #1 Knowledge Deficit PT Goal 1 Goal Patient to demonstrate independence with HEP Target Visit 8 PT Problem 2 PT Problem #2 Pain PT Goal 1 Goal Patient to report highest pain at 2/10 Target Visit 8 PT Problem 3 PT Problem #3 Impaired Strength PT Goal 1 Goal Patient to demonstrate 5/5 strength of R LE to improve stair navigation Target Visit 8 PT Problem 4 PT Problem #4 Impaired Functional Mobil PT Goal 1 Goal 1. Patient to improve LEFS by 20% 2. Patient to demonstrate 5xSTS in <15 seconds to decrease fall risk 3. Patient to report ability to navigate 1 flight of stairs with no increase in pain.
--- NOTE | 2023-03-16 17:12 | PTOPEVAL1 ---
Assessment and note entered by Jena Skaggs DPT Evaluation Information Assessment Status Evaluation Diagnosis R knee pain Onset 03/12/23 Subjective Information Patient reports R knee pain over the last 2 years with pain increasing in the last 2 months. Patient reports pain is anterior. She has difficulty with standing up from chairs, stair navigation, and ambulating prolonged distances. She reports she does occasionally with a walking stick. Patient reports that tylenol helps to decrease pain. X- rays show severe arthritis. Reported Pain Level Pain Score 1: Self Report Assessment PT Clinical Summary Patient is a 82 year old female who presents to PT with R knee pain. Patient demonstrates decreased R LE strength, impaired R knee posture and instability at the tib/fib joint impairing her ability to stand up from chair, navigate stairs and stand to complete house hold tasks. Patient has signs of sever R knee OA. Patient would benefit from skilled PT to address impairments and return to PLOF. Plan of Care Interventions Electrical Stimulation,Gait Training,Hot Pack/Cold Pack,Manual Therapy,Neuro Re-education,Patient/ Caregiver Educati,Therapeutic Activities, Therapeutic Exercise PT Services Indicated Yes Treatment Frequency and 2x weekly for 8 visits Duration These treatments will address the objective and functional deficits as defined above. The patient will be advanced safely and appropriately in order for the patient to progress towards his/her prior level of function. Additional exercises will be introduced and as well as a comprehensive home exercise program upon discharge, if needed, ?to ensure carryover of functional gains achieved in the clinic. This treatment plan has been reviewed and agreement upon by the patient.
--- NOTE | 2023-04-08 13:23 | PTOPDC ---
Assessment and note entered by JT File, PT Evaluation Information Assessment Status Re-evaluation Diagnosis R knee pain Onset 03/12/23 Subjective Information Patient reports significant pain in the R knee at the beginning of today's session. She notes that since starting physical therapy she has not noticed much improvement in pain or strength. She still has difficulty with ambulation, stair climbing, and other weight bearing activities. Patient notes she is visiting the orthopedic surgeon this week to discuss treatment/surgery options. Reported Pain Level Pain Score 8: Self Report Assessment PT Clinical Summary Patient has attended 7 sessions of skilled PT to address R knee pain. She continues to demonstrate impaired LE strength and report high pain levels present in the R knee with any weight bearing activities, such as stair climbing, walking, and standing for any length of time. Patient has not reached PT goals for strength, pain, and function at this date. She currently has 51% functional decline as assessed by the LEFS. At this point in time, discontinuing skilled PT until patient sees orthopedic surgeon. Plan of Care PT Services Indicated Yes
--- NOTE | 2023-04-08 13:23 | OPREHPOC ---
Outpatient Therapy Plan of Care This is a Multidisciplinary Plan of Care that may contain components documented by all disciplines (PT, OT, and ST.) PT Problem 1 PT Problem #1 Knowledge Deficit PT Goal 1 Goal Patient to demonstrate independence with HEP Target Visit 8 Progress Met PT Problem 2 PT Problem #2 Pain PT Goal 1 Goal Patient to report highest pain at 2/10 Target Visit 8 Progress Not Met PT Problem 3 PT Problem #3 Impaired Strength PT Goal 1 Goal Patient to demonstrate 5/5 strength of R LE to improve stair navigation Target Visit 8 Progress Not Met PT Problem 4 PT Problem #4 Impaired Functional Mobil PT Goal 1 Goal 1. Patient to improve LEFS by 20% 2. Patient to demonstrate 5xSTS in <15 seconds to decrease fall risk 3. Patient to report ability to navigate 1 flight of stairs with no increase in pain. Target Visit 8 Progress Not Met
== END 2023-04-07 14:55 | disposition home or self-care (01) ==
LOC: CHSPT 14:54
PROVIDERS: PCP Internal Medicine; Visit Provider Internal Medicine
DX: M25.561 Pain in right knee (principal)
CPT/HCPCS: 97110; 97150; 97161; 97530

== ENCOUNTER 2023-10-22 00:18 | Day surgery (SDC) | payer MEDICARE, BC, SELFPAY ==
[2023-10-08 12:19] VITALS: BMI 22.3
--- NOTE | 2023-10-16 09:32 | PC.NURSE ---
Spoke with _patient_ regarding medication _ELIQUIS__. Pt. verbalizes understanding that the last dose of __ELIQUIS__ is to be taken on 10/19/2023 and the Endoscopist will instruct them when to restart after the procedure.
--- NOTE | 2023-10-20 09:15 | SUR.PREOP ---
Patient called regarding upcoming procedure. Voicemail left regarding appointment times.
--- NOTE | 2023-10-21 17:52 | PM.HPGS ---
History of Present Illness History of Present Illness Consent: Risks, benefits, and alternatives have been discussed and questions answered. Patient agrees to proceed with procedure. Chief complaint: Abnormal hepatic flexure on CT Narrative: Misti Garcia is a 82 year old female Who was referred because of an abnormality seen on CT scan. Was thickening Of the colon wall in the area of the hepatic flexure. she had a large hiatal hernia which was repaired about 2 years ago. Review of Systems Review of Systems: All systems reviewed & are unremarkable except as noted in HPI and below PMFSH Past Medical History Medical History Atrial fibrillation Breast cancer Essential hypertension GERD (gastroesophageal reflux disease) Hyperlipidemia Surgical History Surgical History H/O lumpectomy History of hysterectomy History of repair of hiatal hernia Repair paraesophageal hiatal hernia with Halley fundoplication 03/19/22 Family History Family History Mother Cerebrovascular accident Father CAD (coronary artery disease) Myocardial infarct Social History Social History Smoking packs per day: 1 Smoking cigarettes per day: 20.0 Years smoked: 12 Smoking pack-years: 12.00 Smoking status: Former smoker Tobacco type: cigarettes Smoking end date: 08/31/59 Alcohol intake: current Drinks per week: 1 Alcohol use details: rare very minimal use Substance use: never Substance use type: does not use Living arrangements: alone Occupation/Education: retired Gender identity (if verbalized by the patient): Female Sexual Orientation (if Verbalized by the Patient): Straight or Heterosexual Spiritual care concerns: No Meds Home Medications and Allergies Home Medications Medication Instructions Recorded Confirmed Type atorvastatin 10 mg tablet 10 mg PO DAILY 12/15/20 10/08/23 History spironolactone 25 mg tablet 25 mg PO DAILY 12/15/20 10/08/23 History acetaminophen 325 mg tablet 325 mg PO PRN PRN Pain 03/14/22 10/08/23 History (Tylenol) apixaban 2.5 mg tablet (Eliquis) 2.5 mg PO BID 10/08/23 10/08/23 History cholecalciferol (vitamin D3) 25 25 mcg PO DAILY 10/08/23 10/08/23 History mcg (1,000 unit) tablet (Vitamin D3) cyanocobalamin (vitamin B-12) 1,000 mcg PO DAILY 10/08/23 10/08/23 History 1,000 mcg tablet metoprolol succinate 50 mg 25 mg PO HS 10/08/23 10/08/23 History tablet,extended release 24 hr pantoprazole 40 mg tablet,delayed 40 mg PO DAILY 10/08/23 10/08/23 History release Allergies Allergy/AdvReac Type Severity Reaction Status Date / Time No Known Allergies Allergy Verified 10/22/23 09:18 Exam Resp: Auscultation: clear to auscultation bilaterally Cardio: Rate: regular rate Rhythm: regular rhythm GI: GI Palp: Yes Soft to palpation and No Tenderness to palpation present (GI) Assessment and Plan Assessment and plan (1) Abnormal CT scan, gastrointestinal tract: Code(s): R93.3 - Abnormal findings on diagnostic imaging of other parts of digestive tract Status: Acute Assessment and Plan: Colonoscopy with possible biopsy or polypectomy or cautery or injection of substances.
[2023-10-22 09:20] VITALS: BP 132/88; PULSE 83; RESP 18; TEMP 36.8; O2SAT 96
[2023-10-22] MEDS: LACTATED RINGERS 1,000 ML 150 ML IV CONT (09:34)
[2023-10-22] MEDS: AMPICILLIN 2 GM/NS 100 ML 2 GM/100 ML BAG IVPB (09:35)
--- NOTE | 2023-10-22 09:50 | WPDANESEPPF ---
Anes - Initial Pre Proc Eval Procedure: Operation Date: 10/22/23 10:30 Proposed Procedures p Colonoscopy - Pio Kwong MD Date/Time: 10/22/23 09:50 Surgeon: Pio Kwong MD Pre Op Diagnosis: Abnormal hepatic flexure on CT Patient Data Age: 82 Gender: F Height: 1.63 m Weight: 63.7 kg Last Vital Signs Temp 98.3 F 10/22/23 09:20 Pulse 83 10/22/23 09:20 Resp 18 10/22/23 09:20 BP 132/88 10/22/23 09:20 Pulse Ox 96 10/22/23 09:20 O2 Del Method Room Air 10/22/23 09:20 Allergies Allergy/AdvReac Type Severity Reaction Status Date / Time No Known Allergies Allergy Verified 10/22/23 09:18 Home Medications Medication Instructions Recorded Confirmed Type atorvastatin 10 mg tablet 10 mg PO DAILY 12/15/20 10/08/23 History spironolactone 25 mg tablet 25 mg PO DAILY 12/15/20 10/08/23 History acetaminophen 325 mg tablet 325 mg PO PRN PRN Pain 03/14/22 10/08/23 History (Tylenol) apixaban 2.5 mg tablet (Eliquis) 2.5 mg PO BID 10/08/23 10/08/23 History cholecalciferol (vitamin D3) 25 25 mcg PO DAILY 10/08/23 10/08/23 History mcg (1,000 unit) tablet (Vitamin D3) cyanocobalamin (vitamin B-12) 1,000 mcg PO DAILY 10/08/23 10/08/23 History 1,000 mcg tablet metoprolol succinate 50 mg 25 mg PO HS 10/08/23 10/08/23 History tablet,extended release 24 hr pantoprazole 40 mg tablet,delayed 40 mg PO DAILY 10/08/23 10/08/23 History release Patient hx anesthesia problems: none Family hx anesthesia problems: none Results Review: All pre-operative results and documents have been reviewed as part of the pre-operative evaluation. [facility] Past Medical History Medical History Atrial fibrillation Breast cancer Essential hypertension GERD (gastroesophageal reflux disease) Hyperlipidemia Surgical History Surgical History H/O lumpectomy History of hysterectomy History of repair of hiatal hernia Repair paraesophageal hiatal hernia with Halley fundoplication 03/19/22 Family History Family History Mother Cerebrovascular accident Father CAD (coronary artery disease) Myocardial infarct Social History Social History Smoking packs per day: 1 Smoking cigarettes per day: 20.0 Years smoked: 12 Smoking pack-years: 12.00 Smoking status: Former smoker Tobacco type: cigarettes Smoking end date: 08/31/59 Alcohol intake: current Drinks per week: 1 Alcohol use details: rare very minimal use Substance use: never Substance use type: does not use Living arrangements: alone Occupation/Education: retired Gender identity (if verbalized by the patient): Female Sexual Orientation (if Verbalized by the Patient): Straight or Heterosexual Spiritual care concerns: No Anes - Eval Final PreProcedure Day of Procedure 10/22/23 09:50 Patient weight: normal Heart: irregular rhythm Lungs: clear to auscultation Airway: Mallampati scale class II Neurological: alert and oriented Last oral intake: >/= 8 hours ASA classification: III Emergent: no Anesthetic plan: proceed Anesthesia type and monitoring: general GIVS and standard monitoring Results Review: All pre-operative results and documents have been reviewed as part of the pre-operative evaluation. Informed Consent: The patient's anesthetic plan and its attendant risks and benefits were discussed with the patient/family/POA. Questions were solicited and answers provided to the satisfaction of the patient/family/POA.
[2023-10-22 10:49] VITALS: BP 124/86; PULSE 99; RESP 30; O2SAT 100
[2023-10-22 10:59] VITALS: BP 127/94; PULSE 93; RESP 20; O2SAT 100
[2023-10-22 11:09] VITALS: BP 115/78; PULSE 80; RESP 18; O2SAT 98
== END 2023-10-22 11:29 | disposition home or self-care (01) ==
PROVIDERS: PCP Internal Medicine; Visit Provider Internal Medicine Gastroenterology
PROC: 0DJD8ZZ Inspection of Lower Intestinal Tract, Via Natural or Artificial Opening Endoscopic (ICD-10-PCS; CPT 45378; principal; 2023-10-22 10:30)
DX: R93.3 Abnormal findings on diagnostic imaging of other parts of digestive tract (principal); D12.2 Benign neoplasm of ascending colon; I48.91 Unspecified atrial fibrillation; I10 Essential (primary) hypertension; E78.5 Hyperlipidemia, unspecified; K21.9 Gastro-esophageal reflux disease without esophagitis; Z87.891 Personal history of nicotine dependence; Z85.3 Personal history of malignant neoplasm of breast
CPT/HCPCS: 45385; 88305; J0290; J7120

== ENCOUNTER 2024-02-05 09:02 | Outpatient (CLI) | payer MEDICARE, BC, SELFPAY ==
--- NOTE | ~2024-02-05 | XR_ITS ---
XR abdomen/kub 1V Ordering provider: Polly Mcmahan, PROOF READER History: . constipation/abdominal pain/nausea/vomiting off and on x2wks . Comparison: None. FINDINGS: BOWEL: Fecal material is noted in the colon. Nonobstructive bowel gas pattern. ORGANOMEGALY: None. SIGNIFICANT PATHOLOGIC CALCIFICATIONS: None. OTHER: Dextroscoliosis with degenerative changes of the spine. Right hip osteoarthritic changes. No f ree air is seen under the diaphragm. IMPRESSION: NO ACUTE ABDOMINAL FINDINGS. Constipation. Reviewed, dictated and finalized at location A.
[2024-02-05 09:49] LABS: Basophils Absolute Auto 0.02 K/mm3 (0.00-0.10); Basophils Percent Auto 0.4 % (0.0-1.0); Eosinophils Absolute Auto 0.05 K/mm3 (0.02-0.50); Eosinophils Percent Auto 1.1 % (1.0-6.0); Hematocrit 42.8 % (35.0-42.0); Hemoglobin 13.9 g/dL (11.7-13.8); Immature Granulocyte Absolute 0.02 K/mm3 (0.00-0.00); Immature Granulocyte Percent A 0.4 % (0.0-0.0); Lymphocytes Absolute Auto 1.03 K/mm3 (1.10-4.50); Lymphocytes Percent Auto 22.5 % (18.0-42.0); Mean Corpuscular HGB Conc 32.5 g/dL (32-36); Mean Corpuscular Hemoglobin 30.9 pg (27.0-31.0); Mean Corpuscular Volume 95.1 fL (78.0-102.0); Mean Platelet Volume 10.5 fl (9.2-11.8); Monocytes Absolute Auto 0.36 K/mm3 (0.10-0.90); Monocytes Percent Auto 7.9 % (2.0-11.0); Neutrophils Percent Auto 67.7 % (50.0-70.0); Platelet Count Result 183 K/mm3 (150-420); Red Cell Distribution Width 13.2 % (11.6-14.4); White Blood Count 4.6 K/mm3 (4.8-10.8)
[2024-02-05 10:10] LABS: Alanine Aminotransferase 21 U/L (14-59); Albumin Level 3.7 g/dL (3.4-5.0); Alkaline Phosphatase 71 U/L (46-116); Anion Gap 11 mmol/L (4-12); Aspartate Amino Transferase 19 U/L (15-37); Bilirubin,Total 1.2 mg/dL (0.00-1.00); Blood Urea Nitrogen 20 mg/dL (7-18); Calcium 9.1 mg/dL (8.5-10.1); Carbon Dioxide 27 mmol/L (21-32); Chloride 104 mmol/L (98-108); Estimated Glomerular Filt Rate 46; Glucose 118 mg/dL (70-99); Osmolality Calculated 297 mOsm/kg (285-295); Potassium 4.7 mmol/L (3.5-5.1); Sodium 142 mmol/L (136-145); Total Protein 6.8 g/dL (6.4-8.2)
== END 2024-02-05 09:03 | disposition home or self-care (01) ==
LOC: CHSLAB 09:04
PROVIDERS: PCP Internal Medicine; Visit Provider Nurse Practitioner Family
DX: K59.00 Constipation, unspecified (principal); A09 Infectious gastroenteritis and colitis, unspecified
CPT/HCPCS: 36415; 74018; 80053; 85025

== ENCOUNTER 2024-02-19 15:25 | Outpatient (CLI) | payer MEDICARE, BC, SELFPAY ==
[2024-02-19 15:50] LABS: Hematocrit 40.2 % (35.0-42.0); Hemoglobin 13.3 g/dL (11.7-13.8); Mean Corpuscular HGB Conc 33.1 g/dL (32-36); Mean Corpuscular Hemoglobin 31.4 pg (27.0-31.0); Mean Platelet Volume 10.4 fl (9.2-11.8); Platelet Count Result 187 K/mm3 (150-420); Red Blood Count 4.23 M/mm3 (4.20-5.40); Red Cell Distribution Width 13.2 % (11.6-14.4)
[2024-02-19 16:10] LABS: Alanine Aminotransferase 20 U/L (14-59); Albumin Level 3.6 g/dL (3.4-5.0); Alkaline Phosphatase 66 U/L (46-116); Anion Gap 5 mmol/L (4-12); Aspartate Amino Transferase 17 U/L (15-37); Bilirubin,Total 0.7 mg/dL (0.00-1.00); Blood Urea Nitrogen 20 mg/dL (7-18); Calcium 8.9 mg/dL (8.5-10.1); Carbon Dioxide 30 mmol/L (21-32); Chloride 107 mmol/L (98-108); Estimated Glomerular Filt Rate 52; Glucose 104 mg/dL (70-99); Osmolality Calculated 296 mOsm/kg (285-295); Sodium 142 mmol/L (136-145); Total Protein 7.1 g/dL (6.4-8.2)
== END 2024-02-19 15:26 | disposition home or self-care (01) ==
LOC: CHSLAB 15:28
PROVIDERS: PCP Internal Medicine; Visit Provider Nurse Practitioner Family
DX: R10.9 Unspecified abdominal pain (principal); K59.00 Constipation, unspecified
CPT/HCPCS: 36415; 80053; 85027

== ENCOUNTER 2024-02-24 10:16 | Outpatient (CLI) | payer MEDICARE, BC, SELFPAY ==
--- NOTE | ~2024-02-24 | CT_ITS ---
EXAMINATION: CT abdomen pelvis w con DATE: 02/24/2024 11:01 INDICATION: Bilateral lower abdominal pain and constipation. TECHNIQUE: Computed tomography (CT) of the abdomen and pelvis was performed with 100 mL Omnipaque-350 intravenous contrast. Automated exposure control and iterative reconstruction technique were employe d. The dose-length product was 284.94 mGy-cm. COMPARISON: CT dated 10/04/2021 FINDINGS: Again seen is peripheral predominant irregular septal line thickening with some honeycombing at the b ilateral lung bases which could represent mild pulmonary edema or atelectasis superimposed on emphyse ma or usual interstitial pneumonia (UIP) pattern chronic interstitial lung disease. Borderline heart size with biatrial enlargement. Atherosclerotic coronary artery calcifications. Small sliding-type hi atal hernia. Liver, gallbladder, spleen, pancreas, bilateral adrenal glands and kidneys are normal. M oderate amount of gas and stool scattered throughout the colon. No abnormal bowel wall thickening or obstruction. Bladder is normal. The uterus is not identified and has likely been surgically resected. No free intraperitoneal gas or fluid. No pathologically enlarged abdominal or pelvic lymphadenopathy . 45 degrees thoracolumbar dextroscoliosis with severe spondylosis. IMPRESSION: 1. No acute intra-abdominal/pelvic process. 2. Small sliding-type hiatal hernia. 3. Peripheral bibasilar lung disease which could represent either atelectasis or mild pulmonary edema superimposed on emphysema or chronic UIP pattern chronic interstitial lung disease. 3. Borderline heart size with biatrial enlargement. Reviewed, dictated and finalized at location B. IMPRESSION: 1. No acute intra-abdominal/pelvic process. 2. Small sliding-type hiatal hernia. 3. Peripheral bibasilar lung disease which could represent either atelectasis o r mild pulmonary edema superimposed on emphysema or chronic UIP pattern chronic interstitial lung disease. 3. Borderline heart size with biatrial enlargement.
== END 2024-02-24 10:17 | disposition home or self-care (01) ==
PROVIDERS: PCP Internal Medicine; Visit Provider Nurse Practitioner Family
DX: R10.9 Unspecified abdominal pain (principal); K59.00 Constipation, unspecified; K44.9 Diaphragmatic hernia without obstruction or gangrene; R91.8 Other nonspecific abnormal finding of lung field; I51.7 Cardiomegaly
CPT/HCPCS: 74177; Q9967